=== PATIENT | male | born 1955 | race Caucasian/White ===

== ENCOUNTER 2018-06-10 18:52 | Inpatient (IN) | payer MEDICARE, OTHER ==
--- NOTE | 2018-06-10 19:08 | ED Physician Chart ---
ED Chief Complaint/HPI - Patient Information Date Seen:: 06/10/18 Time Seen:: 18:50 Chief Complaint:: agitation History of Present Illness:: At his long-term facility the patient has reportedly been punching staff and smearing feces. Historian:: Patient, EMS Review:: Transfer documents Reviewed ED Review of Systems - Review of Systems General/Constitutional: No fever, No chills, No weight loss, No weakness, No diaphoresis, No edema, No loss of appetite Skin: No skin lesions, No rash, No bruising Head: No headache, No light-headedness Eyes: No loss of vision, No pain, No diplopia ENT: No earache, No nasal drainage, No sore throat, No tinnitus Neck: No neck pain, No swelling, No thyromegaly, No stiffness, No mass noted Cardio Vascular: No chest pain, No palpitations, No PND, No orthopnea, No edema Pulmonary: No SOB, No cough, No sputum, No wheezing GI: No nausea, No vomiting, No diarrhea, No pain, No melena, No hematochezia, No constipation, No hematemesis G/U: No dysuria, No frequency, No hematuria Musculoskeletal: No bone or joint pain, No back pain, No muscle pain Endocrine: No polyuria, No polydipsia Psychiatric: Prior psych history, No prior psych history, No depression, No anxiety, No suicidal ideation Hematopoietic: No bruising, No lymphadenopathy Allergic/Immuno: No urticaria, No angioedema Neurological: No syncope, No focal symptoms, No weakness, No paresthesia, No headache, No seizure, No dizziness, No confusion, No vertigo ED Past Medical History - Past Medical History Past Medical History: Other (anemia; tachycardia; hypernatremia; benign prostatic hypertrophy; psychosis; major depression status post deep vein thrombosis) Family History: Other Social History: Care Facility, Other (former smoker) Surgical History: other Psychiatricy History: Depression, Schizophrenia Medication: Reviewed ED Physical Exam - Physical Examination General/Constitutional: Awake, Well-developed, well-nourished, Alert, No distress, GCS 15, Non-toxic appearing, Ambulatory Head: Atraumatic Eyes: Lids, conjuctiva normal, PERRL, EOMI Other Skin comments:: Palms of both hands dry, peeling and cracked. ENMT: External ears, nose nl, Nasal exam nl, Lips, teeth, gums nl Neck: Nontender, Full ROM w/o pain, No JVD, No nuchal rigidity, No bruit, No mass, No stridor Respiratory: Nl effort/Exclusion, Clear to Auscultation, No Wheeze/Rhonchi/Rales Cardio Vascular: RRR, No murmur, gallop, rubs, NL S1 S2 GI: No tenderness/rebounding/guarding, No organomegaly, No hernia, Normal BS's, Nondistended, No mass/bruits, No McBurney tenderness : No CVA tenderness Extremities: No tenderness or effusion, Full ROM, normal strength in all extremities, No edema, Normal digits & nails Neuro/Psych: Alert/oriented, DTR's symmetric, Normal sensory exam, Normal motor strength, Judgement/insight normal, Mood normal, Normal gait, No focal deficits Misc: Normal back, No paraspinal tenderness ED Labs/Radiology/EKG Results - Lab Results Results: Laboratory Results - last 24 hr 06/10/18 06/10/18 19:13 19:13 WBC 7.0 RBC 3.82 L Hgb 11.4 L Hct 33.4 L MCV 87.4 MCH 29.7 MCHC Differential 34.0 RDW 16.9 Plt Count 480 H MPV 7.1 Add Manual Diff YES Band Neutrophils % 3 Neutrophils (Manual) 72 Lymphocytes 10 L Monocytes 15 H Eosinophils 0 Basophils 0 Sodium 129 L Potassium 4.2 Chloride 97 L Carbon Dioxide 24.1 Anion Gap 12.1 BUN 26 H Creatinine 1.0 Est GFR ( Amer) > 60.0 Est GFR (Non-Af Amer) > 60.0 BUN/Creatinine Ratio 26.0 Glucose 128 H Calcium 8.2 L Total Bilirubin 0.2 L AST 49 H ALT 90 H Alkaline Phosphatase 100 Total Protein 5.7 L Albumin 2.8 L Globulin 2.9 Albumin/Globulin Ratio 1.0 Triglycerides 125 Cholesterol 108 LDL Cholesterol Direct 60 L HDL Cholesterol 38 - EKG Interpretations Rate & Rhythm: normal sinus rhythm with a rate of 85 [place]: normal Comments:: Left atrial enlargement; Q-wave in V2 suggestive of an old septal [place]. ED Septic Shock - . Is Septic Shock (SBP<90, OR Lactate>4 mmol\L) present?: No ED Reassessment (Disposition) - Reassessment Reassessment Condition:: Unchanged - Diagnosis Diagnosis:: Schizophrenia with agitation; depression - Patient Disposition Admitting Medical Physician:: Brien eDwey Admitting Psych Physician:: Darrick Kumar Condition at Disposition:: Stable, Unchanged
[2018-06-10 19:20] LABS: HEMATOCRIT 33.4 % (41.0-60); HEMOGLOBIN 11.4 gm/dL (12-16); MEAN CELL VOLUME 87.4 fl (80-99); MEAN CORPUSCULAR HEMOGLOBIN 29.7 pg (26.0-30.0); MEAN PLATELET VOLUME 7.1 fl; PLATELET COUNT 480 Th/cmm (150-400); RED BLOOD COUNT 3.82 Mil/cmm (4.30-5.70); RED CELL DISTRIBUTION WIDTH 16.9 % (11.5-20.0)
[2018-06-10 19:37] LABS: ALBUMIN 2.8 gm/dL (4.2-5.5); ALKALINE PHOSPHATASE 100 U/L (34-104); ANION GAP 12.1 (7.0-16.0); BILIRUBIN,TOTAL 0.2 mg/dL (0.3-1.0); BUN - UREA NITROGEN 26 mg/dL (7-25); CALCIUM SERUM 8.2 mg/dL (8.6-10.3); CARBON DIOXIDE 24.1 mEq/L (21.0-31.0); CHLORIDE 97 mEq/L (98-107); CHOLESTEROL 108 mg/dL (<200); GFR AFRICAN-AMERICAN > 60.0 ml/min (>90); GFR NON AFRICAN-AMERICAN > 60.0 ml/min; GLUCOSE 128 mg/dL (70-105); HDL -HIGH DENSITY LIPOPROTEIN 38 mg/dL (23-92); POTASSIUM SERUM 4.2 mEq/L (3.5-5.1); SGOT 49 U/L (13-39); SGPT/ALT 90 U/L (7-52); SODIUM SERUM 129 mEq/L (136-145); TOTAL PROTEIN,SERUM 5.7 gm/dL (6.0-8.3); TRIGLYCERIDES 125 mg/dL (<150)
[2018-06-10 20:00] LABS: BAND NEUTROPHILE 3 % (0-10); BASOPHIL 0 % (0-3); EOSINOPHIL 0 % (0-5); LYMPHOCYTE 10 % (20-50); MONOCYTE 15 % (2-10); NEUTROPHILS 72 % (40-80)
[2018-06-10] MEDS ORDERED: Maalox 30 mL Cup PO PRN (22:41)
[2018-06-10] MEDS ORDERED: Magnesium Hydroxide (MOM) 30 mL UDC PO PRN (22:41)
[2018-06-11 08:57] VITALS: BP 116/78
[2018-06-11] MEDS ORDERED: Non-Formulary Item 1 EA (Multivitamin [Multivitamins] 1 CAP) PO SCH (09:00)
[2018-06-11] MEDS ORDERED: Multivitamin Tab PO SCH (09:00)
--- NOTE | 2018-06-11 10:08 | History & Physical ---
ADMIT DATE: 06/11/2018 PATIENT'S ID: A 63-year-old male. REQUESTING PHYSICIAN: Dr. Kumar. REASON: Medical management. HISTORY: The patient is an extremely poor historian, unable to get meaningful history. Available records from alf, Emergency Room, and talking to the staff. History is obtained. Apparently, a 63-year-old male who was a resident of [facility], brought in to the Emergency Room after the patient was noted to have aggressive behavior and hitting staff. The patient was also smearing his stool on the wall as well. The patient was evaluated in the Emergency Room and now being admitted. PAST MEDICAL HISTORY: Remarkable for: 1. Status post colostomy. 2. History of anemia. 3. History of DVT. 4. Psychotic disorder. 5. Status post colostomy for unknown reason. MEDICATIONS: List has been reviewed and reconciled appropriately. ALLERGIES: Allergies to multiple medications, which includes ATROPINE, PHENOBARBITAL, SCOPOLAMINE. SOCIAL HISTORY: He is a resident of alf, does not smoke, does not drink. FAMILY HISTORY: Unavailable. REVIEW OF SYSTEMS: Unable to get meaningful history from the patient. PHYSICAL EXAMINATION: GENERAL: The patient is alert, awake, but not following any commands. VITAL SIGNS: Temperature 98.1, pulse 80, respiratory is 18, blood pressure 116/78. HEENT: Normocephalic, atraumatic. Extraocular muscles are intact. Tongue was pink and coated. NECK: Supple, no JVD. HEART: Regular. No murmur. CHEST: Lung equal in expansion. No expiratory wheezing. ABDOMEN: Soft. Colostomy noted. Bowel sounds are present. EXTREMITIES: No edema. Peripheral pulses are +1, diffuse osteoarthritic changes noted. NEUROLOGIC: Alert, but not following any commands. Moving upper and lower extremities. AVAILABLE DIAGNOSTIC DATA: Show a white count of 7, hemoglobin 11.4, platelet count of 480, monocytes 15%. Sodium 129, potassium 4.2, chloride 97, BUN and creatinine is 26 and 1, albumin of 2.8, LDL of 60. RPR is nonreactive. Other labs are not available for review. CLINICAL IMPRESSION: 1. Psychotic disorder exacerbation. 2. Status post colostomy. 3. Benign prostatic hypertrophy. 4. Hyponatremia. 5. Normocytic normochromic anemia. 6. Protein-calorie malnutrition. 7. Degenerative joint disease. 8. High risk for fall. PLAN: The patient is to resume his home medication. Psych evaluation and management deferred to psychiatrist. Workup for hyponatremia along with colostomy care as well. Symptoms management and medication management will be provided as well. We will continue to follow this patient during the stay in the hospital. [facility]# [id number]
[2018-06-11] MEDS: Benztropine 1 MG TAB PO SCH ×2 (11:25→18:41)
[2018-06-11] MEDS: Multivitamin Tab PO SCH (13:17)
[2018-06-11] MEDS: Zinc Oxide Ointment 60 gm TP SCH (18:14)
--- NOTE | 2018-06-11 18:16 | Psychiatric Evaluation ---
DATE OF SERVICE: 06/11/2018 HISTORY OF PRESENT ILLNESS: A 63-year-old male with long history of schizophrenia, currently conserved was at a [facility]. I saw him yesterday, he was punching staff in the abdomen, smearing feces, psychotic, disorganized, aggressive, nonsensical on exam. States he has no idea when talking about when I talk about the feces. Noted to be withdrawn, highly impulsive, unpredictable, ongoing psychotic symptoms. PAST PSYCHIATRIC HISTORY: Conserved, multiple hospitalizations in the past. FAMILY HISTORY: Unknown. SOCIAL HISTORY: States he was born in [place]. Not , no kids. Unclear if he has been using any drugs. Very poor historian. Apparently, he is a former smoker per documentation. PAST MEDICAL HISTORY: Noted. MENTAL STATUS EXAMINATION: Stated age. Fair eye contact. Speech rambling, disorganized, smells of feces. Mood "okay." Affect flat. Thought processes were disorganized. No overt SI or HI. He is rambling, mumbling to self. Poor insight, poor judgment. PROVISIONAL DIAGNOSIS: Schizophrenia. MEDICAL: Please see full H and P. ESTIMATED LENGTH OF STAY: 10 to 14 days. Functional impairments, needs ch[facility]. Pain 0/10. ASSESSMENT: The patient is disorganized, bizarre, smearing feces, punching staff, combative. PLAN: I will increase Zyprexa dosing today. Continue dosing of Haldol. TREATMENT PLAN: Includes group as well as milieu therapy. CONDITIONS FOR DISCHARGE: Improved mood, improved affect, cessation of any SI, better control of his psychotic and bizarre and aggressive symptoms. [facility]# [id number]
[2018-06-11] MEDS ORDERED: Non-Formulary Item 1 EA (Melatonin [Melatonin] 6 MG) PO SCH (21:00)
--- NOTE | 2018-06-11 23:23 | History & Physical ---
ADMIT DATE: 06/11/2018 HISTORY OF PRESENT ILLNESS: The patient is a 63-year-old male with long history of degenerative joint disease, benign prostatic hypertrophy, dementia, psychosis, admitted to [facility] under Dr. Kumar's service for evaluation and treatment. No chest pain, no shortness of breath, no nausea, no vomiting, no fever, no chills. PAST MEDICAL HISTORY: Significant for degenerative joint disease, benign prostatic hypertrophy, dementia, and psychosis. PAST SURGICAL HISTORY: No recent surgery. ALLERGIES: ATROPINE, HYOSCYAMINE, PHENOBARBITAL, SCOPOLAMINE. SOCIAL HISTORY: No alcohol, no drugs. He has history of smoking. FAMILY HISTORY: Noncontributory. MEDICATIONS: Follow admission reconciliation. REVIEW OF SYSTEMS: IMMUNO SYSTEM: No history of chronic immuno disorder. CARDIOVASCULAR SYSTEM: No coronary artery disease. ENDOCRINE SYSTEM: No diabetes or thyroid problem. GASTROINTESTINAL SYSTEM: No upper or lower GI bleed. NEUROLOGICAL SYSTEM: No seizure disorder. SKELETOMUSCULAR SYSTEM: He has degenerative joint disease. HEMATOLOGIC SYSTEM: He has history of mild anemia. GENITOURINARY: He has history of benign prostatic hypertrophy. PHYSICAL EXAMINATION: GENERAL: He is awake, alert, mildly confused. VITAL SIGNS: Temperature is 98.2, heart rate is 79, blood pressure is 119/72. HEENT: Normocephalic. Pupils reactive to light and accommodation. Sclerae clear. NECK: Supple. Negative for lymphadenopathy, JVD or bruit. CHEST: Entry of air bilaterally normal. No rhonchi or wheezing. HEART: S1, S2 normal. No gallop rhythm. ABDOMEN: Soft, bowel sounds positive. EXTREMITIES: No edema. NEUROLOGIC: He is awake, alert, mildly confused. LABORATORY DATA: White blood 7, hemoglobin 11.4, hematocrit 33.4, platelets 480,000. Sodium 129, potassium 4.2, BUN 26, creatinine 1.0. Glucose 128. ASSESSMENT: 1. Degenerative joint disease. 2. Benign prostatic hypertrophy. 3. Hyponatremia. 4. Dementia. 5. Psychosis. PLAN: The patient admitted to the hospital under Dr. Kumar's service. Medical problem to address during hospitalization are dementia and psychosis. Medical problems addressed at discharge are benign prostatic hypertrophy, degenerative joint disease. The patient is medically stable for activity. Thank you, Dr. Kumar, for asking me to see your patient. [facility]# [id number]
[2018-06-12] MEDS: Benztropine 1 MG TAB PO SCH ×2 (09:34→16:25)
[2018-06-12] MEDS: Multivitamin Tab PO SCH (09:34)
[2018-06-12] MEDS: Zinc Oxide Ointment 60 gm TP SCH (09:35)
[2018-06-12] MEDS ORDERED: Haloperidol Lactate 5 mg/mL 1mL Vial IM ONE (14:37)
[2018-06-12] MEDS ORDERED: Haloperidol Lactate 5 mg/mL 1mL Vial ONE (14:42)
--- NOTE | 2018-06-12 22:42 | Progress Notes ---
DATE: 06/12/[address] Kumar. Case was discussed with staff of the patient, reviewed records. This is a 63-year-old male who was admitted to the services of Dr. Kumar on 06/10/2018, for the history of schizophrenia. He is conserved. He is in a long-term facility. The patient was punching staff in the abdomen, smearing feces, very psychotic, disorganized, making nonsensical statements, unable to answer questions appropriately, has multiple hospitalization in the past. He is still disorganized, talking to himself, unpredictable, impulsive, needing redirection, unable to make safe plan for self-care. ____ he was started yesterday by Dr. Kumar. He is on Haldol 5 mg 3 times a day and olanzapine 10 mg twice a day with no side effects, no sedation, no nausea, no extrapyramidal symptoms. We will continue to work with the patient in group therapy, milieu therapy, and adjust the medication as needed. JOB# [id number]
[2018-06-13] MEDS: Multivitamin Tab PO SCH (08:43)
[2018-06-13] MEDS: Benztropine 1 MG TAB PO SCH ×2 (08:43→18:41)
[2018-06-13] MEDS: Zinc Oxide Ointment 60 gm TP SCH (08:47)
[2018-06-13] MEDS ORDERED: Haloperidol Lactate 5 mg/mL 1mL Vial IM STA (11:30)
[2018-06-13] MEDS ORDERED: Haloperidol Lactate 5 mg/mL 1mL Vial ONE (11:32)
--- NOTE | 2018-06-13 21:26 | Progress Notes ---
DATE: 06/13/[address] Kumar. Case was discussed with staff of the patient, reviewed records. The patient continues to be very agitated. He is in the isolation room. He has been threatening staff, punching staff, he has been unpredictable, very agitated, even get emergency medication to work for an hour, then he will get fired up again. He continues to have poor insight. I will be initiating Depakote on him because of his extreme agitation, impulsive, threatening behavior to help with the rest of his medications. Discussed side effects, though not sure he listen to me. He is severely agitated, impulsive, unpredictable and with no side effects with the medication, no sedation, no nausea, no extrapyramidal symptoms. We will continue outpatient group therapy, milieu therapy, and adjust medication as needed. JOB# [id number]
--- NOTE | 2018-06-14 08:18 | Diagnostic Imaging Report ---
CT scan of the brain without contrast History: Status post fall Total DLP equals 687 CTDI equals 37.0 Axial sections were obtained from the base of the skull to the vertex. There is a normal ventricular system size. No focal parenchymal lesions are seen. No evidence of any mass effect or shift of midline structures. No extra-axial masses or abnormal fluid collections. There is evidence for a retrocerebellar arachnoid cyst on the right side. Impression: Negative examination
[2018-06-14] MEDS: Multivitamin Tab PO SCH (09:31)
[2018-06-14] MEDS: Zinc Oxide Ointment 60 gm TP SCH (09:32)
[2018-06-14] MEDS: Benztropine 1 MG TAB PO SCH ×2 (09:32→17:25)
--- NOTE | 2018-06-14 11:24 | Progress Notes ---
DATE: 06/14/2018 SUBJECTIVE: The patient is currently in the hospital, mostly isolative, at times threatening, highly impulsive, unpredictable, rambling, making nonsensical comments, came in due to smearing feces, ongoing concerns for these types of behaviors. Still going to the bathroom, still messing with his colostomy bag, multiple changes throughout the day, fixated on smoking, restless, getting up out of bed, sitting in his wheelchair, rambling, mumbling, yelling at his clinician. ASSESSMENT: The patient remains symptomatic, ongoing psychotic symptoms, compulsions, bizarre. PLAN: We will continue to monitor. I will be titrating medications, increasing medications. The patient is not safe for discharge. Medications were noted. He did require emergency medications yesterday. JOB# [id number]
[2018-06-15] MEDS: Multivitamin Tab PO SCH (08:55)
[2018-06-15] MEDS: Benztropine 1 MG TAB PO SCH ×2 (08:56→16:20)
[2018-06-15] MEDS: Zinc Oxide Ointment 60 gm TP SCH (08:57)
--- NOTE | 2018-06-15 23:13 | Progress Notes ---
DATE: 06/15/2018 The patient seen, chart reviewed, discussed with staff. The patient naked, wandering in the room, still pulling out the colostomy bag, still unruly requiring a lot of staff interventions, still combative, argumentative, bizarre, making some bizarre comments, nonsensical. Sleeping fairly well. The patient remains symptomatic, currently on Zyprexa 10 t.i.d. Also, Haldol 5 t.i.d., Depakote 250 daily. I will be checking a Depakote level and titrate medications accordingly. Given his ongoing symptoms, he is not safe for discharge. JOB# [id number]
[2018-06-16] MEDS: Multivitamin Tab PO SCH (09:14)
[2018-06-16] MEDS: Benztropine 1 MG TAB PO SCH ×2 (09:15→16:51)
[2018-06-16] MEDS: Zinc Oxide Ointment 60 gm TP SCH (09:53)
--- NOTE | 2018-06-16 10:16 | Progress Notes ---
DATE: 06/16/2018 The patient noted fully oriented, confused, yesterday was walking around naked, smells of feces, very unruly. He sometimes tries to remove his colostomy bag. He is very impulsive, unpredictable, rambling nonsensically, difficult to redirect, sometimes gets aggressive, anxious. ASSESSMENT: The patient remains symptomatic, compulsive with colostomy bag. Currently on Depakote and Haldol. We will initiate anti-depressive medications to see if we can alleviate his compulsive behaviors. He is quite symptomatic, still smearing feces and walking around naked and unruly. JOB# [id number]
[2018-06-17] MEDS: Multivitamin Tab PO SCH (09:42)
[2018-06-17] MEDS: Benztropine 1 MG TAB PO SCH ×2 (09:43→17:01)
[2018-06-17] MEDS: Zinc Oxide Ointment 60 gm TP SCH (09:44)
[2018-06-17] MEDS: Escitalopram Oxalate 5 mg Tab PO SCH ×2 (11:51→17:01)
--- NOTE | 2018-06-17 22:38 | Progress Notes ---
DATE: 06/17/2018 SUBJECTIVE: The patient seen, chart reviewed, discussed with staff. The patient was seen today 06/17/2018. The patient remains highly impulsive, unpredictable, poorly oriented, rambling, compulsive behaviors. Still at times, pulls off colostomy bag, does it on the floor, anxious, restless at times smearing feces, slept for about 4 hours. He does remain somewhat calmer, catch basin cleaner, not smearing feces at this time, but walking around the unit, currently on Zyprexa, Haldol, Depakote, Lexapro. Recent dose initiation of Lexapro. ASSESSMENT: The patient remains symptomatic, bizarre, still smearing feces, highly impulsive and unpredictable, ongoing concerns about behavioral disturbances. I will continue to monitor. JOB# [id number]
[2018-06-18] MEDS: Escitalopram Oxalate 5 mg Tab PO SCH (08:40)
[2018-06-18] MEDS: Benztropine 1 MG TAB PO SCH ×2 (08:41→16:43)
[2018-06-18] MEDS: Multivitamin Tab PO SCH (08:42)
[2018-06-18] MEDS: Zinc Oxide Ointment 60 gm TP SCH (08:44)
[2018-06-18] MEDS: HALOPERIDOL PO SCH ×2 (13:49→20:38)
--- NOTE | 2018-06-19 02:56 | Progress Notes ---
DATE: 06/18/2018 SUBJECTIVE: The patient is seen today, 06/18/2018. Unpredictable, yelling, sleeping in other patient's bed, feels other patients' food, rummages through the trashcan, wandering. The patient still tampering with his bag. He has been somewhat calmer, but touches things with his hands, which at times has feces on it. The patient noted to be withdrawn, depressed, rambling, highly disorganized, sleeping fairly well, and eating with some prompting. ASSESSMENT: The patient disorganized, psychotic, symptomatic, bizarre. PLAN: We will continue to monitor. We will increase dosing of Haldol to try to tamper down his psychotic symptoms, bizarre behaviors. We will monitor and follow up. Also, we will be increasing his dosing of Lexapro to see if this will decrease his compulsive behaviors. [facility]# [id number]
[2018-06-19] MEDS: Multivitamin Tab PO SCH (08:52)
[2018-06-19] MEDS: HALOPERIDOL PO SCH ×3 (08:52→21:12)
[2018-06-19] MEDS: Benztropine 1 MG TAB PO SCH ×2 (08:53→16:22)
[2018-06-19] MEDS: Zinc Oxide Ointment 60 gm TP SCH (09:03)
--- NOTE | 2018-06-20 08:18 | Progress Notes ---
DATE: 06/19/2018 SUBJECTIVE: The patient was seen and evaluated. The patient's chart reviewed. This is Dr. Rice covering for Dr. Kumar. IDENTIFYING DATA: This is a 63-year-old male with previous history of schizophrenia, brought in here, who has been punching staff in the abdomen, smearing feces and psychotic. Nursing staff reported the patient continues overnight to smear feces, disorganized, and laughing inappropriately. As earlier last night primary psychiatric continues to note the patient continues to be unpredictable, yelling, sleeping in other people's bed and rummages through the trash can. Today on [id number] evaluation, the patient presents disorganized, does not give much more information beyond that. When I attended to discuss linear conversation, once the patient will be preoccupied, observed to be thought blocking. ASSESSMENT AND PLAN: The patient continued to be psychotic, disorganized, engaging in self injured behavior, which includes rummaging through trash can, wandering, and also attempting to play with the feces and rambling. Recently, the Haldol was increased in the last 24 hours, which he is tolerating without complication. No EPS. No tardive dyskinesia. We will continue with the current medication regimen. CURRENT MEDICATION REGIMEN: Include mg p.o. b.i.d., Depakote 250 daily and 1800, citalopram at 10 mg, finasteride and Haldol 6 mg t.i.d. with lorazepam as needed, olanzapine at 10 mg t.i.d., which is currently being augmented with the current Haldol dosage. JOB# [id number]
[2018-06-20] MEDS: Multivitamin Tab PO SCH (09:03)
[2018-06-20] MEDS: HALOPERIDOL PO SCH ×3 (09:04→20:38)
[2018-06-20] MEDS: Benztropine 1 MG TAB PO SCH ×2 (09:05→16:17)
[2018-06-20] MEDS: Zinc Oxide Ointment 60 gm TP SCH (09:06)
--- NOTE | 2018-06-21 00:09 | Progress Notes ---
DATE: 06/20/2018 COVERING FOR: Dr. Kumar. SUBJECTIVE: The patient was seen and evaluated. The patient's chart reviewed. Nursing staff reported that the patient continued to be disorganized. Today on [id number] evaluation, he was outside, smoking, easily irritable upon his conversation, mildly just disorganized. Nursing staff also continued to report that at times he has feces in his hands. MENTAL STATUS EXAMINATION: Disorganized, psychotic, symptomatic. ASSESSMENT AND PLAN: We will continue with the recent increase of Haldol as he continues to reach a steady state. To continue with ____ the patient's bizarre behavior and the behavior of playing with the feces. We will continue monitoring and evaluating, and continue with primary psychiatrist's treatment plan and goals. JOB# [id number]
[2018-06-21] MEDS: Multivitamin Tab PO SCH (09:36)
[2018-06-21] MEDS: HALOPERIDOL PO SCH ×3 (09:36→21:36)
[2018-06-21] MEDS: Benztropine 1 MG TAB PO SCH ×2 (09:36→17:31)
[2018-06-21] MEDS: Zinc Oxide Ointment 60 gm TP SCH (09:39)
--- NOTE | 2018-06-21 11:22 | Progress Notes ---
DATE: 06/21/2018 SUBJECTIVE: The patient seen and examined. The patient having foul smelling loose bowel movement. Concern about the C. diff. The patient remained hemodynamically stable otherwise. THE PATIENT HAS MULTIPLE ALLERGIES. OBJECTIVE: On today's exam, VITAL SIGNS: Temperature 98, pulse is 100, respiratory rate 18, blood pressure 100/50. HEENT: No facial asymmetry. NECK: Supple, no JVD. HEART: Regular. CHEST AND LUNG: Equal in expansion, no expiratory wheezing. ABDOMEN: Soft. No guarding, no rigidity. Bowel sounds present. No palpable mass. Well-functioning colostomy noted. EXTREMITIES: No edema. NEUROLOGIC: Alert, awake, moving upper and lower extremity. CLINICAL IMPRESSION: 1. Diarrhea, ruled out Clostridium difficile. 2. Hyponatremia. 3. Protein-calorie malnutrition. 4. Degenerative joint disease. 5. Psychotic disorder. 6. Status post colostomy. PLAN: 1. Check the stool for C. diff. 2. Check BMP. 3. General nursing care. 4. Psych medication. 5. Fall precaution. 6. Colostomy care. 7. Care plan reviewed and discussed with staff. JOB# [id number]
[2018-06-21 12:03] LABS: ANION GAP 13.5 (7.0-16.0); CARBON DIOXIDE 26.8 mEq/L (21.0-31.0); CREATININE - SERUM 1.6 mg/dL (0.7-1.3); GFR AFRICAN-AMERICAN 56.2 ml/min (>90); GFR NON AFRICAN-AMERICAN 46.5 ml/min; POTASSIUM SERUM 5.3 mEq/L (3.5-5.1)
--- NOTE | 2018-06-21 16:20 | Progress Notes ---
DATE: 06/21/2018 SUBJECTIVE: The patient remains bizarre, disorganized, clog in the toilet at times, he is nonsensical. Difficult to understand what he is saying. Still attempting to remove his colostomy bag. He is calmer, some more redirectable. On a positive note, he is not trying to punch anybody. He is not hitting anybody. He is confused, talking to himself. Medication adjustments do seem to be improving his overall demeanor. He is currently on Zyprexa 10 t.i.d. and Haldol 6 t.i.d. Depakote throughout the day as well. Lexapro seems to be helping some of his compulsions. We will continue to monitor, adjust and titrate medications. Medications were noted. He is still bizarre, but calmer. JOB# [id number]
[2018-06-21] MEDS: Vancomycin HCL 250 mg /10mL UDC PO SCH (21:37)
[2018-06-22] MEDS: Benztropine 1 MG TAB PO SCH ×2 (09:50→17:55)
[2018-06-22] MEDS: HALOPERIDOL PO SCH ×3 (09:51→21:00)
[2018-06-22] MEDS: Zinc Oxide Ointment 60 gm TP SCH (09:52)
[2018-06-22] MEDS: Multivitamin Tab PO SCH (09:52)
[2018-06-22] MEDS: Vancomycin HCL 250 mg /10mL UDC PO SCH ×4 (09:53→21:00)
[2018-06-22] MEDS ORDERED: Probiotic Screen MC PRN (12:11)
[2018-06-22] MEDS: Lactobacillus Rhamnosus GG 15 Billion CFU CAP.SPRINK PO SCH (14:00)
--- NOTE | 2018-06-22 17:40 | Discharge Summary ---
DATE OF DISCHARGE: 06/22/2018 DATE OF DISCHARGE: 06/22/2018. JUSTIFICATION FOR HOSPITALIZATION: Punching staff. HISTORY OF PRESENT ILLNESS: A 63-year-old male with long history of schizophrenia, conserved, punching staff in the abdomen at the alf, smearing feces, psychotic, disorganized, nonsensical, walking around naked, walking around with feces on his hands, bizarre. PAST PSYCHIATRIC HISTORY: Conserved. FAMILY HISTORY: Unknown. SOCIAL HISTORY: Noted. MENTAL STATUS EXAMINATION: Please see full psych eval for details. PROVISIONAL DIAGNOSIS: Schizophrenia. Under medical, please see full H and P. HOSPITAL COURSE: After initial assessment, the patient was started on medications such as Flomax, Zyprexa. Zyprexa was titrated. Haldol titrated. Lexapro also titrated for the compulsive behaviors, also Depakote, Cogentin. Over the course of the hospitalization, his mood improved. He was calmer, more cooperative, remain pretty disorganized, bizarre, but no longer smearing feces, more cooperative, no agitation, not trying to punch anybody, able to more clearly let his needs be known. The patient on isolation due to Clostridium difficile. The patient noted to be sleeping well, eating fairly well. Still requiring some prompting, redirection. By 06/22/2018, he was no longer combative, no longer agitated. His mood had improved. He was likely at his baseline and was discharged. Placement was confirmed. CONDITION UPON DISCHARGE: Improved, allowing ADLs. Fair eye contact. Mood "okay." Affect bizarre. Thought processes remain somewhat disorganized. No SI, no HI, no intent, no plan. No overt psychotic symptoms. Insight and judgment seem better. Better impulse control. Certainly less compulsive. No evidence of any auditory or visual hallucinations. No longer talking to himself. DISCHARGE DIAGNOSES: Schizophrenia, rule out obsessive compulsive disorder, anxiety, unspecified. Under medical, please see full H and P. PATIENT'S STRENGTHS: Good response to treatment and safe discharge plan. PROGNOSIS: The patient follows up with outpatient mental health services and remains compliant with treatment. Prognosis will improve, otherwise guarded. JOB# [id number]
[2018-06-23] MEDS: Benztropine 1 MG TAB PO SCH ×2 (08:46→16:38)
[2018-06-23] MEDS: HALOPERIDOL PO SCH ×3 (08:46→21:37)
[2018-06-23] MEDS: Lactobacillus Rhamnosus GG 15 Billion CFU CAP.SPRINK PO SCH (08:47)
[2018-06-23] MEDS: Multivitamin Tab PO SCH (08:47)
[2018-06-23] MEDS: Zinc Oxide Ointment 60 gm TP SCH (08:48)
[2018-06-23] MEDS: Vancomycin HCL 250 mg /10mL UDC PO SCH ×4 (09:21→21:44)
--- NOTE | 2018-06-23 16:52 | Progress Notes ---
DATE: 06/23/2018 SUBJECTIVE: The patient remains bizarre, psychotic. He was supposed to leave yesterday, but he has a C. diff, so he cannot leave. He is currently under treatment. His wheelchair is highly contaminated. He is in a Holli chair, bizarre, nonsensical likely at his baseline. He is not combative or agitated. He is calmer. Medications seem to be helping him. He is quite gravely disabled, currently conserved. Medications were noted. Sleeping well, eating well. ASSESSMENT: The patient is bizarre, still psychotic, not safe for a lower level of care. Also with infection. RECOMMENDATIONS AND PLAN: We will continue to monitor, adjust and titrate medications. We are also treating infection. JOB# [id number]
[2018-06-24] MEDS: Multivitamin Tab PO SCH (08:34)
[2018-06-24] MEDS: Lactobacillus Rhamnosus GG 15 Billion CFU CAP.SPRINK PO SCH (08:35)
[2018-06-24] MEDS: Benztropine 1 MG TAB PO SCH ×2 (08:36→16:26)
[2018-06-24] MEDS: HALOPERIDOL PO SCH ×3 (08:36→20:28)
[2018-06-24] MEDS ORDERED: Haloperidol Lactate 5 mg/mL 1mL Vial ONE (09:20)
[2018-06-24] MEDS: Vancomycin HCL 250 mg /10mL UDC PO SCH ×4 (10:01→20:31)
[2018-06-24] MEDS: Zinc Oxide Ointment 60 gm TP SCH (10:02)
--- NOTE | 2018-06-25 02:50 | Progress Notes ---
DATE: 06/24/2018 SUBJECTIVE: The patient is bizarre, psychotic, smearing feces, requiring emergency medications today, combative, hitting others. Medications were noted. Sleeping well, eating well. Medications were noted including doses and frequencies. ASSESSMENT: The patient remains symptomatic, bizarre, agitated, aggressive, smearing feces, requiring Haldol cocktail today. We will continue to monitor. The patient is not safe for discharge. We will titrate dosages of medications. [facility]# [id number]
[2018-06-25] MEDS: HALOPERIDOL PO SCH ×3 (08:05→20:30)
[2018-06-25] MEDS: Multivitamin Tab PO SCH (08:05)
[2018-06-25] MEDS: Lactobacillus Rhamnosus GG 15 Billion CFU CAP.SPRINK PO SCH (08:06)
[2018-06-25] MEDS: Benztropine 1 MG TAB PO SCH ×2 (08:06→17:21)
[2018-06-25] MEDS: Vancomycin HCL 250 mg /10mL UDC PO SCH ×4 (09:04→20:28)
--- NOTE | 2018-06-26 00:54 | Progress Notes ---
DATE: 06/25/2018 The patient slept for about 4 hours, in and out of the room, wandering, suddenly yelling at times, at times needing emergency medications. He required emergency medications yesterday over the past 24 hours, Haldol cocktail. He is still making some bizarre statements, mumbling, and stating to staff, he does not care, but it is unclear what the context is. He known to be psychotic, responding to internal stimuli. Medications were reviewed including dosages and frequencies. ASSESSMENT: The patient is psychotic, bizarre, recent dose increase of Zyprexa, tolerating well. VITAL SIGNS: Reviewed. Blood pressure 98/56 and pulse rate of 91. JOB# [id number]
[2018-06-26] MEDS: Benztropine 1 MG TAB PO SCH ×2 (08:45→16:59)
[2018-06-26] MEDS: Multivitamin Tab PO SCH (08:45)
[2018-06-26] MEDS: HALOPERIDOL PO SCH ×3 (08:46→20:31)
[2018-06-26] MEDS: Lactobacillus Rhamnosus GG 15 Billion CFU CAP.SPRINK PO SCH (08:47)
[2018-06-26] MEDS: Zinc Oxide Ointment 60 gm TP SCH (08:47)
[2018-06-26] MEDS: Vancomycin HCL 250 mg /10mL UDC PO SCH ×4 (08:47→21:26)
--- NOTE | 2018-06-26 21:16 | Progress Notes ---
DATE: SUBJECTIVE: The patient seen, chart reviewed, discussed with staff. The patient is still wandering behavior, disoriented, disorganized, yelling at times, gets agitated at times, needing some p.r.n. medications. Difficult to understand, mumbles, still fixated on colostomy bag. ASSESSMENT: The patient remains impulsive, unpredictable, not safe for a lower level of care. Certainly gravely disabled. Vitals reviewed, blood pressure 107/64, pulse rate of 99. PLAN: We will continue to monitor, tolerant of Zyprexa. JOB# [id number]
--- NOTE | 2018-06-26 23:26 | Progress Notes ---
DATE: SUBJECTIVE: The patient seen and examined. The patient is still agitated. The patient has been noted to have C. diff colitis. The patient is currently on p.o. vancomycin. So far, the patient has significantly decreased diarrhea for now. The patient does not provide a meaningful history. Discussed with nursing staff about their concern. PHYSICAL EXAMINATION: VITAL SIGNS: Temperature 97.6, pulse 96, respiratory rate is 20, and blood pressure 124/65. HEENT: No facial asymmetry. NECK: Supple, no JVD. HEART: Both heart sounds are regular. CHEST AND LUNGS: Equal in expansion, no expiratory wheezing. ABDOMEN: Soft. No guarding, no rigidity. Bowel sounds are present. Well-functioning colostomy noted. EXTREMITIES: No edema. CLINICAL IMPRESSION: 1. Clostridium difficile colitis. 2. Protein calorie malnutrition. 3. Psychotic disorder. 4. Degenerative joint disease. 5. Mild renal insufficiency by blood test. 6. Psychotic disorder. PLAN: 1. P.o. Vancocin. 2. Follow up lab. 3. Nutritional support. 4. General nursing care. 5. Colostomy care. 6. Symptoms management. 7. Medication management. 8. Follow lab. 9. Care plan reviewed and discussed with staff. JOB# [id number]
[2018-06-27 06:47] LABS: % BASOPHILS 0.8 % (0.0-2.0); % EOSINOPHILS 0.8 % (0.0-5.0); % LYMPHOCYTES 17.6 % (20.0-50.0); % MONOCYTES 6.8 % (2.0-10.0); BASOPHILE ABSOLUTE 0.1 Th/cumm (0-0.2); EOSINOPHILE ABSOLUTE 0.1 Th/cmm (0.1-0.4); HEMATOCRIT 36.8 % (41.0-60); HEMOGLOBIN 12.2 gm/dL (12-16); LYMPHOCYTE ABSOLUTE 1.2 Th/cmm (1.5-3.0); MEAN CELL VOLUME 85.7 fl (80-99); MEAN CORPUSCULAR HEMOGLOBIN 28.3 pg (26.0-30.0); MEAN PLATELET VOLUME 6.7 fl; MONOCYTE ABSOLUTE 0.5 Th/cmm (0.3-1.0); PLATELET COUNT 539 Th/cmm (150-400); RED CELL DISTRIBUTION WIDTH 16.8 % (11.5-20.0); WHITE BLOOD COUNT 6.9 Th/cmm (4.8-10.8)
--- NOTE | 2018-06-27 07:18 | Progress Notes ---
DATE: SUBJECTIVE: The patient in the hospital, confused, disorganized, telling people his name is not Marty, very impatient, wanting to smoke, fixated on smoking, easily agitated, colostomy out, depressed, bizarre, erratic behaviors, highly impulsive and unpredictable, compulsive. ASSESSMENT: The patient bizarre, disorganized, psychotic, appearing mumbling to self. PLAN: We will continue to monitor, titrate and adjust medications. He is currently symptomatic, gravely disabled. JOB# [id number]
[2018-06-27 07:20] LABS: ALB/GLOB RATIO 0.7 (1.0-1.8); ALKALINE PHOSPHATASE 119 U/L (34-104); BILIRUBIN,TOTAL 0.2 mg/dL (0.3-1.0); BUN - UREA NITROGEN 46 mg/dL (7-25); CALCIUM SERUM 9.3 mg/dL (8.6-10.3); CARBON DIOXIDE 23.8 mEq/L (21.0-31.0); CHLORIDE 98 mEq/L (98-107); CREATININE - SERUM 1.5 mg/dL (0.7-1.3); GFR AFRICAN-AMERICAN > 60.0 ml/min (>90); GFR NON AFRICAN-AMERICAN 50.1 ml/min; GLUCOSE 95 mg/dL (70-105); POTASSIUM SERUM 4.8 mEq/L (3.5-5.1); SGOT 17 U/L (13-39); SGPT/ALT 31 U/L (7-52); SODIUM SERUM 128 mEq/L (136-145); TOTAL PROTEIN,SERUM 7.5 gm/dL (6.0-8.3)
[2018-06-27] MEDS: Lactobacillus Rhamnosus GG 15 Billion CFU CAP.SPRINK PO SCH (08:11)
[2018-06-27] MEDS: Multivitamin Tab PO SCH (08:12)
[2018-06-27] MEDS: Benztropine 1 MG TAB PO SCH ×2 (08:12→17:04)
[2018-06-27] MEDS: Vancomycin HCL 250 mg /10mL UDC PO SCH ×4 (08:13→20:33)
[2018-06-27] MEDS: Zinc Oxide Ointment 60 gm TP SCH (08:13)
[2018-06-27] MEDS: HALOPERIDOL PO SCH ×3 (08:13→20:32)
--- NOTE | 2018-06-27 20:26 | Progress Notes ---
DATE: 06/27/2018 SUBJECTIVE: The patient is lying in the bed, alert, awake, oriented, very anxious. The patient has a colostomy and Clostridium difficile colitis, currently under room isolation. The patient does smoke cigarettes. PHYSICAL EXAMINATION: VITAL SIGNS: Temperature 98, pulse is 80, respiratory rate is 18, blood pressure 108/78. HEENT: Poor dentition. NECK: Supple, no JVD. HEART: Regular. CHEST AND LUNGS: Equal in expansion, no expiratory wheezing. ABDOMEN: Soft. No guarding. No rigidity. Bowel sounds are present. No palpable mass. Well functioning colostomy noted. EXTREMITIES: No edema. CLINICAL IMPRESSION: 1. Clostridium difficile colitis. 2. Benign prostatic hypertrophy. 3. Psychotic disorder. 4. Status post colostomy, reason unknown. 5. Protein-calorie malnutrition. 6. Mild renal insufficiency. PLAN: 1. P.o. vancomycin. 2. Follow up lab. 3. General nursing care. 4. Colostomy care. 5. Psychotic evaluation and management deferred to psychiatrist. 6. The patient will give further nutrition. 7. Nutritional support. 8. We will give further recommendations once the lab data are available. JOB# [id number]
[2018-06-28 08:43] LABS: % BASOPHILS 0.7 % (0.0-2.0); % EOSINOPHILS 0.6 % (0.0-5.0); % LYMPHOCYTES 10.5 % (20.0-50.0); % MONOCYTES 4.5 % (2.0-10.0); % NEUTROPHILS 83.7 % (40.0-80.0); BASOPHILE ABSOLUTE 0.1 Th/cumm (0-0.2); EOSINOPHILE ABSOLUTE 0.1 Th/cmm (0.1-0.4); HEMATOCRIT 37.4 % (41.0-60); HEMOGLOBIN 12.2 gm/dL (12-16); MEAN CELL VOLUME 85.6 fl (80-99); MEAN CORPUSCULAR HGB CONC 32.7 pg (28.0-36.0); MEAN PLATELET VOLUME 6.9 fl; MONOCYTE ABSOLUTE 0.4 Th/cmm (0.3-1.0); NEUTROPHILE ABSOLUTE 8.3 Th/cmm (1.8-8.0); PLATELET COUNT 548 Th/cmm (150-400); RED BLOOD COUNT 4.37 Mil/cmm (4.30-5.70); RED CELL DISTRIBUTION WIDTH 16.8 % (11.5-20.0); WHITE BLOOD COUNT 9.9 Th/cmm (4.8-10.8)
[2018-06-28] MEDS: HALOPERIDOL PO SCH ×3 (10:11→20:43)
[2018-06-28] MEDS: Multivitamin Tab PO SCH (10:13)
[2018-06-28] MEDS: Benztropine 1 MG TAB PO SCH ×2 (10:15→16:46)
[2018-06-28] MEDS: Lactobacillus Rhamnosus GG 15 Billion CFU CAP.SPRINK PO SCH (10:15)
[2018-06-28] MEDS: Zinc Oxide Ointment 60 gm TP SCH (10:25)
[2018-06-28] MEDS: Vancomycin HCL 250 mg /10mL UDC PO SCH ×4 (10:25→20:44)
[2018-06-28 11:01] LABS: ALB/GLOB RATIO 0.7 (1.0-1.8); ANION GAP 14.4 (7.0-16.0); CALCIUM SERUM 9.4 mg/dL (8.6-10.3); CARBON DIOXIDE 21.6 mEq/L (21.0-31.0); CREATININE - SERUM 1.7 mg/dL (0.7-1.3); GFR AFRICAN-AMERICAN 52.4 ml/min (>90); GFR NON AFRICAN-AMERICAN 43.3 ml/min; TOTAL PROTEIN,SERUM 7.3 gm/dL (6.0-8.3)
[2018-06-28 11:50] LABS: BILIRUBIN,TOTAL 0.2 mg/dL (0.3-1.0)
--- NOTE | 2018-06-28 12:01 | Progress Notes ---
DATE: The patient is seen, remains bizarre, poorly oriented, impulsive, at times can be aggressive. The patient with C diff, disorganized, gravely disabled, rambling, trying to pull the colostomy. ASSESSMENT: The patient calmer, no longer aggressive. However, he is trying to pull his colostomy. He has no confirmed placement at this time. His vitals were reviewed. Medications were noted. We will continue to monitor. The patient remains grossly psychotic. JOB# [id number]
--- NOTE | 2018-06-28 12:22 | Progress Notes ---
DATE: 06/28/2018 SUBJECTIVE: The patient seen and examined. The patient lying in the bed. The patient noted to have hyponatremia with elevated BUN and creatinine. The patient is currently not taking any diuretics. The patient has diarrhea. I do suspect secondary to volume depletion. PHYSICAL EXAMINATION: VITAL SIGNS: Temperature 98.8, pulse 67, respiratory 18, blood pressure 100/65. HEENT: Poor dentition. NECK: Supple, no JVD. HEART: Regular. CHEST AND LUNGS: Equal in expansion, expiratory wheezing. ABDOMEN: Soft. Colostomy noted. EXTREMITIES: No edema. CLINICAL IMPRESSION: 1. Clostridium difficile colitis. 2. Hyponatremia. 3. Renal insufficiency. 4. Psychotic disorder. 5. Status post colostomy. 6. Benign prostatic hypertrophy. PLAN: 1. Acute kidney injury workup. 2. Sodium chloride tablet. 3. General nursing care. 4. Colostomy care. 5. Psychotic evaluation and management deferred to psychiatrist. 6. Care plan reviewed and discussed with staff. [facility]# [id number]
[2018-06-29] MEDS: Multivitamin Tab PO SCH (09:23)
[2018-06-29] MEDS: Lactobacillus Rhamnosus GG 15 Billion CFU CAP.SPRINK PO SCH (09:24)
[2018-06-29] MEDS: HALOPERIDOL PO SCH ×3 (09:25→22:00)
[2018-06-29] MEDS: Benztropine 1 MG TAB PO SCH ×2 (09:25→17:17)
[2018-06-29] MEDS: Zinc Oxide Ointment 60 gm TP SCH (09:27)
--- NOTE | 2018-06-29 09:43 | Progress Notes ---
DATE: SUBJECTIVE: The patient seen and examined. The patient is sitting in the chair. The patient wants to smoke cigarette. The patient denies any chest pain or shortness of breath. Ileostomy is working. The patient's stool is not as liquid as before. Discussed with nursing staff about the treatment plan. PHYSICAL EXAMINATION: VITAL SIGNS: Temperature 97.3, pulse 87, respiratory rate is 18, and blood pressure 121/80. HEENT: No facial asymmetry. Multiple absent teeth noted. NECK: Supple, no JVD. HEART: Regular. CHEST AND LUNGS: Equal in expansion, no expiratory wheezing. ABDOMEN: Soft with well-functioning ileostomy noted. Bowel sounds present. EXTREMITIES: No edema. CLINICAL IMPRESSION: 1. Hypotension, resolving. 2. Hyponatremia. 3. Acute kidney injury secondary to volume depletion. 4. Status post ileostomy. 5. Clostridium difficile colitis. 6. Psychotic disorder. PLAN: 1. Recheck BMP. 2. P.o. vancomycin. 3. Ileostomy care. 4. General nursing care. 5. Psychotic evaluation and management of her psychotic symptoms. 6. Care plan reviewed and discussed with staff. JOB# [id number]
[2018-06-29] MEDS ORDERED: Probiotic Screen MC PRN (09:45)
--- NOTE | 2018-06-29 15:41 | Progress Notes ---
DATE: 06/29/2018 SUBJECTIVE: The patient in the hospital, for about 5 hours. Noted by staff to be sitting on the floor, acting strange, impulsive at times, aggressive, impoverished, mumbling, rambling, disorganized, still impulsive, and unpredictable. Medications were noted. ASSESSMENT: The patient ongoing unruly and bizarre behaviors, psychotic behaviors, is gravely disabled. Continue Lexapro, Depakote. We will titrate and adjust medications as tolerated. PLAN: We will continue to monitor. The patient is not safe for a lower level of care. JOB# [id number]
[2018-06-29] MEDS: Vancomycin HCL 250 mg /10mL UDC PO SCH ×3 (15:47→22:00)
[2018-06-30 06:24] LABS: % BASOPHILS 0.7 % (0.0-2.0); % EOSINOPHILS 1.6 % (0.0-5.0); % MONOCYTES 10.4 % (2.0-10.0); % NEUTROPHILS 72.3 % (40.0-80.0); BASOPHILE ABSOLUTE 0.1 Th/cumm (0-0.2); EOSINOPHILE ABSOLUTE 0.1 Th/cmm (0.1-0.4); HEMATOCRIT 33.2 % (41.0-60); HEMOGLOBIN 11.2 gm/dL (12-16); LYMPHOCYTE ABSOLUTE 1.4 Th/cmm (1.5-3.0); MEAN CELL VOLUME 86.2 fl (80-99); MEAN CORPUSCULAR HEMOGLOBIN 29.2 pg (26.0-30.0); MEAN CORPUSCULAR HGB CONC 33.9 pg (28.0-36.0); MONOCYTE ABSOLUTE 0.9 Th/cmm (0.3-1.0); NEUTROPHILE ABSOLUTE 6.5 Th/cmm (1.8-8.0); PLATELET COUNT 503 Th/cmm (150-400); RED BLOOD COUNT 3.85 Mil/cmm (4.30-5.70); RED CELL DISTRIBUTION WIDTH 16.6 % (11.5-20.0)
[2018-06-30] MEDS: Lactobacillus Rhamnosus GG 15 Billion CFU CAP.SPRINK PO SCH (08:11)
[2018-06-30] MEDS: HALOPERIDOL PO SCH ×3 (08:11→20:41)
[2018-06-30 08:44] LABS: ALB/GLOB RATIO 0.7 (1.0-1.8); ALBUMIN 2.9 gm/dL (4.2-5.5); ALKALINE PHOSPHATASE 108 U/L (34-104); BILIRUBIN,TOTAL 0.1 mg/dL (0.3-1.0); BUN - UREA NITROGEN 37 mg/dL (7-25); CALCIUM SERUM 9.3 mg/dL (8.6-10.3); CARBON DIOXIDE 21.5 mEq/L (21.0-31.0); CHLORIDE 103 mEq/L (98-107); CREATININE - SERUM 1.3 mg/dL (0.7-1.3); GFR AFRICAN-AMERICAN > 60.0 ml/min (>90); GFR NON AFRICAN-AMERICAN 59.1 ml/min; GLUCOSE 89 mg/dL (70-105); POTASSIUM SERUM 4.5 mEq/L (3.5-5.1); SGOT 14 U/L (13-39); SGPT/ALT 19 U/L (7-52); SODIUM SERUM 130 mEq/L (136-145); TOTAL PROTEIN,SERUM 6.8 gm/dL (6.0-8.3)
[2018-06-30] MEDS: Vancomycin HCL 250 mg /10mL UDC PO SCH ×4 (13:30→20:41)
[2018-06-30] MEDS: Multivitamin Tab PO SCH (15:35)
[2018-06-30] MEDS: Benztropine 1 MG TAB PO SCH ×2 (15:35→16:41)
[2018-06-30] MEDS: Zinc Oxide Ointment 60 gm TP SCH (15:36)
--- NOTE | 2018-06-30 16:09 | Progress Notes ---
DATE: 06/30/2018 SUBJECTIVE: The patient seen and examined. The patient is ambulatory. The patient has no new complaint. The patient did have a followup lab, which revealed improving creatinine of 1.3 with a BUN of 37. Sodium has improved to 130. The patient still has loose BM, but better than before. PHYSICAL EXAMINATION: VITAL SIGNS: See nurses' note. HEENT: No facial asymmetry. Multiple absent teeth noted. NECK: Supple, no JVD. HEART: Regular. LUNGS: Clear to auscultation. ABDOMEN: Soft. Well-functioning ileostomy noted. Bowel sounds are present. EXTREMITIES: No edema. CLINICAL IMPRESSION: 1. Clostridium difficile colitis. 2. Diarrhea, improving. 3. Psychotic disorder. 4. Benign prostatic hypertrophy. 5. Acute kidney injury, resolving. 6. Degenerative joint disease. 7. Status post ileostomy. 8. Hyponatremia, improving. PLAN: 1. Continue p.o. vancomycin and p.o. sodium chloride tablet. 2. Continue to provide ileostomy care and general nursing care along with nutritional support. 3. Psych evaluation and management deferred to psychiatrist. JOB# [id number]
--- NOTE | 2018-07-01 01:02 | Progress Notes ---
DATE: 06/30/2018 SUBJECTIVE: The patient noted to be disoriented, impulsive, aggressive, bizarre, agitated, poorly oriented, trying to remove his colostomy bag, highly impulsive, unpredictable, ____ currently gravely disabled, unruly at times, needing constant redirection, prompting, less agitated. ASSESSMENT: The patient remains symptomatic, still bizarre, impulsive, compulsive unpredictable. PLAN: Medications were noted. We will increase dosing of Lexapro today. Continue antipsychotic medications. JOB# [id number]
[2018-07-01] MEDS: HALOPERIDOL PO SCH ×3 (09:09→22:06)
[2018-07-01] MEDS: Multivitamin Tab PO SCH (09:09)
[2018-07-01] MEDS: Zinc Oxide Ointment 60 gm TP SCH (09:11)
[2018-07-01] MEDS: Lactobacillus Rhamnosus GG 15 Billion CFU CAP.SPRINK PO SCH (09:11)
[2018-07-01] MEDS: Benztropine 1 MG TAB PO SCH ×2 (09:16→17:30)
[2018-07-01] MEDS: Vancomycin HCL 250 mg /10mL UDC PO SCH ×4 (10:31→22:05)
--- NOTE | 2018-07-01 21:56 | Progress Notes ---
DATE: 07/01/2018 Case was discussed with staff of the patient, reviewed records. Covering for Dr. Kumar. This is a well-known case to me as I have seen him before covering for Dr. Kumar. The patient has been in isolation because he was playing and taking off the colostomy bag. The patient continues to be loud, intrusive, yelling and screaming, impulsive, unpredictable gravely disabled, unruly, needing constant redirection, still bizarre, impulsive and unpredictable. No side effects of the medications, no sedation, no nausea and he is on Depakote 250 mg daily, Cogentin 1 mg twice a day, Lexapro 20 mg daily, and Haldol 6 mg 3 times a day and Zyprexa 20 mg twice a day. His Depakote level is 22.6, which is very low, which was checked yesterday. Because of his irritability, unpredictable, impulsive behavior, I will be increasing the dose twice a day and so far I will continue with outpatient group therapy, milieu therapy, adjust medication as needed. JOB# [id number]
--- NOTE | 2018-07-02 08:11 | Progress Notes ---
DATE: IDENTIFICATION: A 63-year-old male SUBJECTIVE: The patient seen and examined. The patient is lying in the bed. No new event. OBJECTIVE: VITAL SIGNS: Temperature 98.6, pulse 66, respiratory rate is 18, blood pressure 108/60. HEENT: No facial asymmetry. NECK: Supple, no JVD. HEART: Regular. CHEST AND LUNGS: Equal in expansion, no expiratory wheezing. ABDOMEN: Soft. No guarding. No rigidity. Bowel sounds are present. EXTREMITIES: No edema. CLINICAL IMPRESSION: 1. Clostridium difficile colitis. 2. Psychiatric disorder. 3. Hyponatremia. 4. Acute kidney injury and resolving. 5. Benign prostatic hypertrophy. 6. Degenerative joint disease. 7. Smoking cigarette. 8. History of nicotine dependency. PLAN: The p.o. vancomycin with p.o. sodium chloride drip tablet. Monitor labs. Continue to provide ileostomy care. General nursing care. Psych medication and psych followup. Fall precautions, nutritional support. Care plan reviewed and discussed. [facility]# [id number]
[2018-07-02 08:35] LABS: % BASOPHILS 1.1 % (0.0-2.0); % EOSINOPHILS 0.9 % (0.0-5.0); % LYMPHOCYTES 9.4 % (20.0-50.0); % MONOCYTES 5.4 % (2.0-10.0); % NEUTROPHILS 83.2 % (40.0-80.0); BASOPHILE ABSOLUTE 0.1 Th/cumm (0-0.2); EOSINOPHILE ABSOLUTE 0.1 Th/cmm (0.1-0.4); HEMATOCRIT 31.6 % (41.0-60); HEMOGLOBIN 10.7 gm/dL (12-16); LYMPHOCYTE ABSOLUTE 1.1 Th/cmm (1.5-3.0); MEAN CELL VOLUME 86.4 fl (80-99); MEAN CORPUSCULAR HEMOGLOBIN 29.3 pg (26.0-30.0); MEAN CORPUSCULAR HGB CONC 33.9 pg (28.0-36.0); MEAN PLATELET VOLUME 7.1 fl; MONOCYTE ABSOLUTE 0.6 Th/cmm (0.3-1.0); NEUTROPHILE ABSOLUTE 9.5 Th/cmm (1.8-8.0); PLATELET COUNT 462 Th/cmm (150-400); RED BLOOD COUNT 3.66 Mil/cmm (4.30-5.70); RED CELL DISTRIBUTION WIDTH 17.4 % (11.5-20.0); WHITE BLOOD COUNT 11.4 Th/cmm (4.8-10.8)
[2018-07-02 09:14] LABS: ALB/GLOB RATIO 0.8 (1.0-1.8); ALBUMIN 2.8 gm/dL (4.2-5.5); ALKALINE PHOSPHATASE 101 U/L (34-104); BILIRUBIN,TOTAL 0.2 mg/dL (0.3-1.0); BUN - UREA NITROGEN 36 mg/dL (7-25); CALCIUM SERUM 9.1 mg/dL (8.6-10.3); CARBON DIOXIDE 21.8 mEq/L (21.0-31.0); CHLORIDE 99 mEq/L (98-107); CREATININE - SERUM 1.2 mg/dL (0.7-1.3); GFR AFRICAN-AMERICAN > 60.0 ml/min (>90); GFR NON AFRICAN-AMERICAN > 60.0 ml/min; GLUCOSE 67 mg/dL (70-105); POTASSIUM SERUM 3.8 mEq/L (3.5-5.1); SGOT 15 U/L (13-39); SGPT/ALT 16 U/L (7-52); SODIUM SERUM 128 mEq/L (136-145); TOTAL PROTEIN,SERUM 6.5 gm/dL (6.0-8.3)
[2018-07-02] MEDS: Zinc Oxide Ointment 60 gm TP SCH (09:17)
[2018-07-02] MEDS: Multivitamin Tab PO SCH (09:19)
[2018-07-02] MEDS: Benztropine 1 MG TAB PO SCH ×2 (09:20→17:39)
[2018-07-02] MEDS: HALOPERIDOL PO SCH ×3 (09:20→20:51)
[2018-07-02] MEDS: Vancomycin HCL 250 mg /10mL UDC PO SCH ×4 (09:26→20:50)
--- NOTE | 2018-07-02 22:46 | Progress Notes ---
DATE: 07/02/2018 DATE OF EVALUATION: 07/02/2018 The patient seen and examined. The patient is lying in the bed. The patient did have blood test done, which revealed sodium of 128 with normal creatinine. According to the nursing staff, the patient is able to eat well. The patient does not have any increasing diarrhea. The patient wants to smoke cigarettes. The patient denies. It is unable to get meaningful history from the patient. PHYSICAL EXAMINATION: VITAL SIGNS: Temperature 97.6, pulse 74, respiratory rate 18, blood pressure 100/50. HEENT: No facial asymmetry. Multiple absent teeth noted. NECK: Supple, no JVD, no hepatojugular reflux, thyromegaly. HEART: Both heart sounds are regular. CHEST AND LUNGS: Equal in expansion, no expiratory wheezing. ABDOMEN: Soft. No guarding, no rigidity. Well-functioning ileostomy noted. EXTREMITIES: No edema. CLINICAL IMPRESSION: 1. Clostridium difficile colitis. 2. Hyponatremia. 3. Acute kidney injury, resolved. 4. Benign prostatic hypertrophy. 5. Degenerative joint disease. PLAN: 1. Continue p.o. vancomycin. 2. Sodium chloride tablet. 3. Psychiatric medication and psychiatric followup. 4. Nutritional support. 5. Probiotic. 6. General nursing care. 7. Continue other medicine as prescribed. 8. Care plan reviewed and discussed with staff. JOB# [id number]
--- NOTE | 2018-07-03 01:45 | Progress Notes ---
DATE: 07/02/2018 SUBJECTIVE: Case was discussed with staff of the patient and reviewed records. The patient continues to be internally preoccupied with episodes of yelling and screaming. Continues to need observation because is taking his colostomy bag. Continues to be unpredictable, impulsive, needing redirection. Continues to have poor insight and unable to make safe plan for self-care. No side effects with the medication, no sedation, no nausea, or no extrapyramidal symptoms. PLAN: We will continue to work with the patient in group therapy, milieu therapy, and adjust medication as needed. JOB# [id number]
[2018-07-03] MEDS: Benztropine 1 MG TAB PO SCH ×2 (09:44→17:52)
[2018-07-03] MEDS: HALOPERIDOL PO SCH ×3 (09:45→21:15)
[2018-07-03] MEDS: Multivitamin Tab PO SCH (09:45)
[2018-07-03] MEDS: Zinc Oxide Ointment 60 gm TP SCH (09:46)
--- NOTE | 2018-07-03 13:16 | Progress Notes ---
DATE: 07/03/2018 SUBJECTIVE: The patient is seen and examined. Unable to get meaningful history today. The patient is taking his medication as directed. The patient remained hemodynamically stable. PHYSICAL EXAMINATION: VITAL SIGNS: Temperature 98.1, pulse 66, respiratory rate 18, blood pressure 113/64. HEENT: No facial asymmetry. Poor dentition. NECK: Supple, no JVD. HEART: Regular. LUNGS: Clear. ABDOMEN: Soft, well-functioning ileostomy noted. EXTREMITIES: No edema. CLINICAL IMPRESSION: 1. Clostridium difficile colitis. 2. Status post ileostomy. 3. Benign prostatic hypertrophy. 4. Psychotic disorder. 5. Degenerative joint disease. 6. Hyponatremia. 7. Anemia of chronic illness. PLAN: 1. Follow up lab. 2. Continue vancomycin. 3. Continue Flomax. 4. Continue sodium chloride tablets. 5. Ileostomy care. 6. Psychotic evaluation and management deferred to psychiatrist. 7. Care plan reviewed and discussed with staff. JOB# [id number]
--- NOTE | 2018-07-03 21:04 | Progress Notes ---
DATE: 07/03/2018 PROGRESS ON THE UNIT: Case was discussed with staff of the patient, reviewed records. The staff reports that he has been acting inappropriate, grabbing people inappropriately. He continues to have poor insight. He continues to be unpredictable, impulsive, needing redirection. He continues to have poor insight, unable to make safe plan for self-care. He is compliant with the medication with no side effects, no sedation, no nausea. I did increase his Depakote dose yesterday to help with his agitated, aggressive and impulsive behavior, inappropriate behavior. He is already on Zyprexa 20 mg twice a day. PLAN: We will continue to work with the patient in group therapy and milieu therapy, adjust medications as needed. JOB# [id number]
[2018-07-03] MEDS: Vancomycin HCL 250 mg /10mL UDC PO SCH (21:15)
[2018-07-04 06:44] LABS: % BASOPHILS 1.1 % (0.0-2.0); % EOSINOPHILS 1.5 % (0.0-5.0); % LYMPHOCYTES 12.9 % (20.0-50.0); % MONOCYTES 7.4 % (2.0-10.0); % NEUTROPHILS 77.1 % (40.0-80.0); BASOPHILE ABSOLUTE 0.1 Th/cumm (0-0.2); EOSINOPHILE ABSOLUTE 0.2 Th/cmm (0.1-0.4); HEMOGLOBIN 10.9 gm/dL (12-16); LYMPHOCYTE ABSOLUTE 1.4 Th/cmm (1.5-3.0); MEAN CELL VOLUME 85.8 fl (80-99); MEAN CORPUSCULAR HEMOGLOBIN 29.2 pg (26.0-30.0); MEAN PLATELET VOLUME 7.4 fl; MONOCYTE ABSOLUTE 0.8 Th/cmm (0.3-1.0); NEUTROPHILE ABSOLUTE 8.2 Th/cmm (1.8-8.0); PLATELET COUNT 542 Th/cmm (150-400); RED BLOOD COUNT 3.74 Mil/cmm (4.30-5.70); RED CELL DISTRIBUTION WIDTH 17.5 % (11.5-20.0); WHITE BLOOD COUNT 10.7 Th/cmm (4.8-10.8)
[2018-07-04 06:56] LABS: ALB/GLOB RATIO 0.8 (1.0-1.8); ALKALINE PHOSPHATASE 99 U/L (34-104); ANION GAP 11.1 (7.0-16.0); BILIRUBIN,TOTAL 0.2 mg/dL (0.3-1.0); BUN - UREA NITROGEN 32 mg/dL (7-25); CALCIUM SERUM 9.1 mg/dL (8.6-10.3); CARBON DIOXIDE 22.7 mEq/L (21.0-31.0); CHLORIDE 104 mEq/L (98-107); CREATININE - SERUM 1.1 mg/dL (0.7-1.3); GFR AFRICAN-AMERICAN > 60.0 ml/min (>90); GFR NON AFRICAN-AMERICAN > 60.0 ml/min; GLUCOSE 90 mg/dL (70-105); POTASSIUM SERUM 3.8 mEq/L (3.5-5.1); SGOT 17 U/L (13-39); SGPT/ALT 15 U/L (7-52); SODIUM SERUM 134 mEq/L (136-145); TOTAL PROTEIN,SERUM 6.8 gm/dL (6.0-8.3)
[2018-07-04] MEDS: Benztropine 1 MG TAB PO SCH ×2 (09:28→17:33)
[2018-07-04] MEDS: HALOPERIDOL PO SCH ×3 (09:28→20:28)
[2018-07-04] MEDS: Multivitamin Tab PO SCH (09:28)
[2018-07-04] MEDS: Vancomycin HCL 250 mg /10mL UDC PO SCH ×4 (09:29→20:27)
[2018-07-04] MEDS: Zinc Oxide Ointment 60 gm TP SCH (09:30)
--- NOTE | 2018-07-04 17:34 | Progress Notes ---
DATE: 07/04/2018 Case was discussed with staff of the patient, reviewed records. The patient continues to have episodes of irritability, agitation, acting inappropriate. Continues to have poor insight. Continues to be unpredictable, impulsive, needing redirection. He is on 1:1. No side effects of the medication, no sedation, no nausea, no extrapyramidal symptoms. We will continue the patient in group therapy, milieu therapy, adjust the medication as needed. JOB# [id number]
[2018-07-05] MEDS: Vancomycin HCL 250 mg /10mL UDC PO SCH ×2 (08:26→12:33)
[2018-07-05] MEDS: Benztropine 1 MG TAB PO SCH ×2 (08:33→16:37)
[2018-07-05] MEDS: Multivitamin Tab PO SCH (08:34)
[2018-07-05] MEDS: HALOPERIDOL PO SCH ×3 (08:34→21:14)
[2018-07-05] MEDS: Zinc Oxide Ointment 60 gm TP SCH (08:36)
--- NOTE | 2018-07-05 22:52 | Progress Notes ---
DATE: 07/05/2018 The patient is currently in the hospital, irritable, agitated, inappropriate at times, on a one-to-one, unruly behaviors, highly impulsive, unpredictable, slept fairly well throughout the night, allowing ADLs, colostomy bag changes, sometimes exhibiting impulsive behaviors and unruly behaviors. ASSESSMENT: The patient is highly disorganized, psychotic, nonsensical, poorly disoriented. PLAN: We will continue to monitor. The patient with ongoing behaviors, currently on higher dose of Lexapro, on a one-to-one. Medications were noted. JOB# [id number]
[2018-07-06] MEDS: Benztropine 1 MG TAB PO SCH ×2 (08:25→17:22)
[2018-07-06] MEDS: HALOPERIDOL PO SCH ×4 (08:25→20:44)
[2018-07-06] MEDS: Multivitamin Tab PO SCH (08:26)
[2018-07-06] MEDS: Zinc Oxide Ointment 60 gm TP SCH (08:26)
[2018-07-06] MEDS ORDERED: Probiotic Screen MC PRN (11:11)
--- NOTE | 2018-07-06 18:36 | Progress Notes ---
DATE: 07/06/2018 The patient is disorganized, confused, resting at this time, resting comfortably in bed overnight, still remains impulsive, compulsive, unpredictable, disorganized, making nonsensical statements. The patient still smearing feces on toilet ____ floor needing a lot of disinfectant, labile, demanding. ASSESSMENT: The is psychotic, bizarre, disorganized, impulsive, unpredictable. PLAN: We will continue to monitor. Check labs. Depakote level at 22.6, I will be increasing his dosages. We will monitor and follow up. JOB# [id number]
--- NOTE | 2018-07-06 21:30 | Progress Notes ---
DATE: 07/06/2018 SUBJECTIVE: The patient seen and examined. PHYSICAL EXAMINATION: VITAL SIGNS: Temperature 98.4, pulse is 72, respiratory rate 20, and blood pressure 100/56. HEENT: No facial asymmetry. Poor dentition noted. NECK: Supple. No JVD. HEART: Regular. CHEST: Lung equal in expansion, no expiratory wheezing. ABDOMEN: Soft. Ileostomy noted. Bowel sounds are present. EXTREMITIES: No edema. CLINICAL IMPRESSION: 1. Clostridium difficile colitis. 2. Status post ileostomy. 3. Psychotic disorder. 4. Chronic obstructive pulmonary disease. 5. Benign prostatic hypertrophy. 6. Degenerative joint disease. 7. Significant smoking cigarettes. PLAN: At this time, 1. Ileostomy care. 2. Psych medication. 3. Psych followup. 4. Continue sodium chloride tablets along with Flomax for BPH. 5. Symptoms management, general nursing care along with nutritional support. Care plan reviewed. JOB# [id number]
[2018-07-07] MEDS: HALOPERIDOL PO SCH ×3 (09:02→21:00)
[2018-07-07] MEDS: Lactobacillus Rhamnosus GG 15 Billion CFU CAP.SPRINK PO SCH (09:02)
[2018-07-07] MEDS: Multivitamin Tab PO SCH (09:02)
[2018-07-07] MEDS: Benztropine 1 MG TAB PO SCH ×2 (09:02→16:46)
[2018-07-07] MEDS: Zinc Oxide Ointment 60 gm TP SCH (09:03)
--- NOTE | 2018-07-08 01:01 | Progress Notes ---
DATE: 07/07/2018 The patient remains symptomatic, disorganized, bizarre, still pulling the colostomy bag, unable to attend to his basic needs, needing a lot of prompting, redirection, no aggressive behaviors, no agitation. He cannot take care of himself due to the severity of his medical and mental health issues. Taking his medications, no side effects. MEDICATIONS: Reviewed. ASSESSMENT: The patient remains symptomatic, gravely disabled, ongoing impulsivity, compulsivity, unpredictability. We will continue to monitor. We are actively trying to find a place for him to go. JOB# [id number]
[2018-07-08] MEDS: Lactobacillus Rhamnosus GG 15 Billion CFU CAP.SPRINK PO SCH (09:12)
[2018-07-08] MEDS: HALOPERIDOL PO SCH ×3 (09:12→21:06)
[2018-07-08] MEDS: Multivitamin Tab PO SCH (09:13)
[2018-07-08] MEDS: Benztropine 1 MG TAB PO SCH ×2 (09:13→16:54)
[2018-07-08] MEDS: Zinc Oxide Ointment 60 gm TP SCH (09:26)
--- NOTE | 2018-07-08 21:25 | Progress Notes ---
DATE: 07/08/2018 SUBJECTIVE: The patient seen, chart reviewed, discussed with staff. The patient is currently in the hospital, psychotic, disorganized, bizarre and poor impulse control, seems calmer, somewhat more interactive, but still talking nonsense, needing a higher level of redirection and prompting, pulling at his colostomy bag a lot less, eating fairly well with some prompting, needing help with ADLs, still gravely disabled. Medications were noted. ASSESSMENT: The patient remains symptomatic, disorganized, making nonsensical statements. PLAN: We will continue to monitor, adjust and titrate medications. We are actively trying to find a place for him to go. JOB# [id number]
[2018-07-09] MEDS: Multivitamin Tab PO SCH (08:22)
[2018-07-09] MEDS: Lactobacillus Rhamnosus GG 15 Billion CFU CAP.SPRINK PO SCH (08:22)
[2018-07-09] MEDS: Benztropine 1 MG TAB PO SCH ×2 (08:23→16:31)
[2018-07-09] MEDS: HALOPERIDOL PO SCH ×3 (08:23→20:42)
[2018-07-09] MEDS: Zinc Oxide Ointment 60 gm TP SCH ×2 (08:25→08:33)
--- NOTE | 2018-07-10 01:00 | Progress Notes ---
DATE: 07/09/2018 SUBJECTIVE: The patient seen and examined. The patient is ambulatory. No new event noted by staff. Does not provide any meaningful history today. PHYSICAL EXAMINATION: VITAL SIGNS: See nurse's note. HEENT: Poor dentition. NECK: Supple, no JVD. HEART: Regular. LUNGS: Have mild expiratory wheezing. ABDOMEN: Soft. Ileostomy noted. Bowel sounds present. EXTREMITIES: No edema. CLINICAL IMPRESSION: 1. Status post ileostomy. 2. Clostridium difficile colitis. 3. Chronic obstructive pulmonary disease. 4. Benign prostatic hypertrophy. 5. Psychotic disorder. 6. Degenerative joint disease. PLAN: 1. Ileostomy care. 2. Antibiotic. 3. Probiotic. 4. Symptoms management. 5. General nursing care. 6. Psych medication. 7. Psych followup. 8. Care plan reviewed and discussed with staff. JOB# [id number]
--- NOTE | 2018-07-10 01:51 | Progress Notes ---
DATE: 07/09/2018 SUBJECTIVE: The patient remains confused, unkempt, mostly to himself, labile, yells at times, gravely disabled, unable to care for his basic food, clothing, skilled nursing, requiring constant redirection, prompting highly impulsive, unpredictable, compulsive, pulling at his colostomy bag. ASSESSMENT: The patient remains symptomatic, unruly, unpredictable, gravely disabled. Medications were noted. PLAN: We will continue to monitor. We are actively trying to help him with placement. [facility]# [id number]
--- NOTE | 2018-07-10 07:25 | Progress Notes ---
DATE: 07/10/2018 The patient remains symptomatic episodes of yelling, screaming, more redirectable, erratic sleep still impulsive, unpredictable, pulling a colostomy, needing a high level of prompting, redirection on a 1:1. ASSESSMENT: The patient rambling, disorganized, psychotic, impulsive. Medications were noted. We will continue to monitor. The patient is gravely disabled. We are working hard on placements. JOB# [id number]
[2018-07-10] MEDS: Multivitamin Tab PO SCH (08:50)
[2018-07-10] MEDS: HALOPERIDOL PO SCH ×3 (08:51→20:46)
[2018-07-10] MEDS: Benztropine 1 MG TAB PO SCH ×2 (08:52→16:47)
[2018-07-10] MEDS: Lactobacillus Rhamnosus GG 15 Billion CFU CAP.SPRINK PO SCH (08:52)
[2018-07-10] MEDS: Zinc Oxide Ointment 60 gm TP SCH (08:52)
--- NOTE | 2018-07-11 06:41 | Progress Notes ---
DATE: 07/11/2018 SUBJECTIVE: The patient did not sleep much last night, irritable, sometimes agitated, restless, and yelling. He is somewhat calmer, more redirectable, less impulsive, still pulling colostomy however. Medications were noted. ASSESSMENT: The patient remains disorganized, symptomatic, gravely disabled, cannot take care of himself, pulls a colostomy bag requiring near constant nursing supervision. PLAN: We will continue to monitor, increase Ambien. JOB# [id number]
[2018-07-11] MEDS: Multivitamin Tab PO SCH (09:47)
[2018-07-11] MEDS: Lactobacillus Rhamnosus GG 15 Billion CFU CAP.SPRINK PO SCH (09:47)
[2018-07-11] MEDS: Benztropine 1 MG TAB PO SCH ×2 (09:47→17:53)
[2018-07-11] MEDS: HALOPERIDOL PO SCH ×3 (09:47→21:40)
[2018-07-11] MEDS: Zinc Oxide Ointment 60 gm TP SCH (09:58)
[2018-07-12] MEDS: Benztropine 1 MG TAB PO SCH ×2 (08:21→16:07)
[2018-07-12] MEDS: HALOPERIDOL PO SCH ×3 (08:22→20:42)
[2018-07-12] MEDS: Multivitamin Tab PO SCH (08:23)
[2018-07-12] MEDS: Lactobacillus Rhamnosus GG 15 Billion CFU CAP.SPRINK PO SCH (08:23)
[2018-07-12] MEDS: Zinc Oxide Ointment 60 gm TP SCH (08:25)
[2018-07-12 10:16] LABS: % EOSINOPHILS 1.9 % (0.0-5.0); % LYMPHOCYTES 13.3 % (20.0-50.0); % MONOCYTES 7.8 % (2.0-10.0); EOSINOPHILE ABSOLUTE 0.1 Th/cmm (0.1-0.4); HEMATOCRIT 29.4 % (41.0-60); HEMOGLOBIN 9.7 gm/dL (12-16); LYMPHOCYTE ABSOLUTE 0.9 Th/cmm (1.5-3.0); MEAN CORPUSCULAR HEMOGLOBIN 29.1 pg (26.0-30.0); MEAN CORPUSCULAR HGB CONC 33.1 pg (28.0-36.0); MEAN PLATELET VOLUME 7.6 fl; MONOCYTE ABSOLUTE 0.6 Th/cmm (0.3-1.0); NEUTROPHILE ABSOLUTE 5.5 Th/cmm (1.8-8.0); PLATELET COUNT 303 Th/cmm (150-400); RED BLOOD COUNT 3.34 Mil/cmm (4.30-5.70); RED CELL DISTRIBUTION WIDTH 18.5 % (11.5-20.0); WHITE BLOOD COUNT 7.1 Th/cmm (4.8-10.8)
[2018-07-12 10:32] LABS: ALB/GLOB RATIO 0.8 (1.0-1.8); ALBUMIN 2.8 gm/dL (4.2-5.5); ALKALINE PHOSPHATASE 93 U/L (34-104); ANION GAP 8.5 (7.0-16.0); BILIRUBIN,TOTAL 0.2 mg/dL (0.3-1.0); BUN - UREA NITROGEN 31 mg/dL (7-25); CALCIUM SERUM 8.9 mg/dL (8.6-10.3); CARBON DIOXIDE 25.4 mEq/L (21.0-31.0); CHLORIDE 108 mEq/L (98-107); CREATININE - SERUM 1.2 mg/dL (0.7-1.3); GFR AFRICAN-AMERICAN > 60.0 ml/min (>90); GFR NON AFRICAN-AMERICAN > 60.0 ml/min; GLUCOSE 66 mg/dL (70-105); POTASSIUM SERUM 3.9 mEq/L (3.5-5.1); SGOT 13 U/L (13-39); SGPT/ALT 9 U/L (7-52); SODIUM SERUM 138 mEq/L (136-145); TOTAL PROTEIN,SERUM 6.2 gm/dL (6.0-8.3)
--- NOTE | 2018-07-12 11:07 | Progress Notes ---
DATE: 07/12/2018 SUBJECTIVE: The patient seen and examined. The patient is restless, very demanding. Unable to provide any meaningful history. The patient continues to have unsteady gait and he is using wheelchair and sometimes he walks on his own. The patient still has a 1:1 sitter due to high risk for fall. OBJECTIVE: VITAL SIGNS: Temperature 98, pulse is 90, respiratory rate is 20, blood pressure 118/71. HEENT: No facial asymmetry. Poor dentition noted. NECK: Supple, no JVD. HEART: Regular. CHEST AND LUNGS: Equal in expansion, no expiratory wheezing. ABDOMEN: Soft. Well-functioning ileostomy in the right lower quadrant noted. EXTREMITIES: No edema. NEUROLOGIC: Alert, awake, and follows commands. CLINICAL IMPRESSION: 1. Hyponatremia, currently on sodium chloride tablet. 2. Normocytic normochromic anemia. 3. Psychotic disorder. 4. Benign prostatic hypertrophy. 5. Status post ileostomy. 6. Degenerative joint disease. 7. Smoking cigarette. 8. High risk for fall. 9. Psychotic disorder. PLAN: 1. Ileostomy care. 2. Follow up BMP and CBC. 3. Continue Proscar and Flomax. 4. ___ to make his stool bulkier. Continue prior ileostomy care, nutritional support, general nursing care. Psych followup and psych medication care plan has been reviewed and discussed with staff as well. JOB# [id number]
--- NOTE | 2018-07-12 16:13 | Progress Notes ---
DATE: 07/12/2018 SUBJECTIVE: The patient was seen and he remained psychotic and disorganized, unruly at times, needing constant supervision, redirection and prompting, still trying to pull a colostomy bag, impulsive, compulsive, unpredictable, nonsensical statements, sleeping fairly well. ASSESSMENT: The patient is disorganized, gravely disabled, making nonsensical statements, still psychotic. PLAN: We will continue to monitor, adjust and titrate medications. We are seeking help with placements. He is conserved. JOB# [id number]
[2018-07-13] MEDS: Multivitamin Tab PO SCH (09:01)
[2018-07-13] MEDS: Lactobacillus Rhamnosus GG 15 Billion CFU CAP.SPRINK PO SCH (09:01)
[2018-07-13] MEDS: HALOPERIDOL PO SCH ×4 (09:02→21:50)
[2018-07-13] MEDS: Benztropine 1 MG TAB PO SCH ×2 (09:04→17:59)
[2018-07-13] MEDS: Zinc Oxide Ointment 60 gm TP SCH (09:05)
--- NOTE | 2018-07-14 01:12 | Progress Notes ---
DATE: 07/13/2018 SUBJECTIVE: The patient remains symptomatic, disorganized, bizarre, still on one-to-one requiring a lot of prompting, redirection, still noted to be impulsive, compulsive, gravely disabled. Medications were noted. ASSESSMENT: The patient is bizarre, symptomatic, but improving, calmer, remains gravely disabled. PLAN: We will continue to monitor, work on the patient's coping, insight. Adjust medications. We are working hard on placement. JOB# [id number]
[2018-07-14] MEDS: Benztropine 1 MG TAB PO SCH ×2 (09:15→16:54)
[2018-07-14] MEDS: Lactobacillus Rhamnosus GG 15 Billion CFU CAP.SPRINK PO SCH (09:15)
[2018-07-14] MEDS: HALOPERIDOL PO SCH ×3 (09:15→20:39)
[2018-07-14] MEDS: Multivitamin Tab PO SCH (09:15)
[2018-07-14] MEDS: Zinc Oxide Ointment 60 gm TP SCH (09:20)
--- NOTE | 2018-07-14 18:28 | Progress Notes ---
DATE: 07/14/2018 SUBJECTIVE: The patient currently in the hospital, seen today 07/14/2018. Noted to be acting strange unruly, not really following directions very well, still pulling out his colostomy at times. Noted to be impulsive, compulsive, still gravely disabled, cannot take care of himself, disorganized on exam. ASSESSMENT: The patient remains symptomatic, unruly, gravely disabled. He is significantly calmer. We are trying to help him with placement. Nursing staff noting that he needs constant supervision, gets irritable at times, mood swings. We will monitor and follow up. JOB# [id number]
[2018-07-15] MEDS: Multivitamin Tab PO SCH (08:48)
[2018-07-15] MEDS: HALOPERIDOL PO SCH ×3 (08:48→21:34)
[2018-07-15] MEDS: Benztropine 1 MG TAB PO SCH ×2 (08:50→16:36)
[2018-07-15] MEDS: Lactobacillus Rhamnosus GG 15 Billion CFU CAP.SPRINK PO SCH (08:50)
[2018-07-15] MEDS: Zinc Oxide Ointment 60 gm TP SCH (09:30)
--- NOTE | 2018-07-15 16:58 | Progress Notes ---
DATE: 07/15/2018 SUBJECTIVE: The patient is calm. States that he is not pulling at his colostomy bag, but the patient is still impulsively touching it, still agitated, paranoid, demanding, still combative at times. Mood unpredictable. He is calm this morning, cooperative, states he feels "okay," "no voices today doctor." Sleeping well with film flat inspector awakenings, still on a 1:1. Unable to care for his basic needs at this time. He is conserved. ASSESSMENT: The patient calmer, more cooperative, psychotic symptoms dissipating. He remains impulsive, unpredictable, unable to care for his basic needs. PLAN: We will continue to monitor. Adjust and titrate medications. We are making efforts to place him through his conservator. [facility]# [id number]
[2018-07-16] MEDS: Multivitamin Tab PO SCH (09:00)
[2018-07-16] MEDS: HALOPERIDOL PO SCH ×3 (09:00→21:07)
[2018-07-16] MEDS: Benztropine 1 MG TAB PO SCH ×2 (09:01→16:21)
[2018-07-16] MEDS: Lactobacillus Rhamnosus GG 15 Billion CFU CAP.SPRINK PO SCH (09:01)
[2018-07-16] MEDS: Zinc Oxide Ointment 60 gm TP SCH (09:01)
--- NOTE | 2018-07-16 11:54 | Progress Notes ---
DATE: 07/16/2018 SUBJECTIVE: The patient in the hospital disorganized "not hearing voices." We are trying to get in touch with the conservator, trying to find places that the patient can go. He is a lot calmer, less restless, still disorganized, demanding at times, still trying to touch the colostomy bag, impulsive. Medications were noted. PLAN: We will continue to monitor. The patient disorganized, gravely disabled. We are trying to work with the conservator for placement. JOB# [id number]
--- NOTE | 2018-07-17 08:25 | Progress Notes ---
DATE: 07/17/2018 SUBJECTIVE: The patient is currently in the hospital stating, "I have no voices doctor," calmer, more cooperative, still impulsively talking and touching the colostomy area, requiring a 1:1 high level of supervision, sleeping fairly well with industrial engineering technician awakenings, requiring a higher level of redirection. Mood "okay." Staff notes he has been calmer. ASSESSMENT: The patient is improving, calmer, but remains impulsive, unpredictable, compulsive, gravely disabled, conserved. PLAN: We are working hard to secure a safe discharge and discharge per plan. We will monitor and follow up. JOB# [id number]
[2018-07-17] MEDS: Multivitamin Tab PO SCH (09:19)
[2018-07-17] MEDS: HALOPERIDOL PO SCH ×3 (09:20→20:46)
[2018-07-17] MEDS: Benztropine 1 MG TAB PO SCH ×2 (09:22→16:28)
[2018-07-17] MEDS: Lactobacillus Rhamnosus GG 15 Billion CFU CAP.SPRINK PO SCH (09:22)
[2018-07-17] MEDS: Zinc Oxide Ointment 60 gm TP SCH (09:26)
--- NOTE | 2018-07-17 20:03 | Progress Notes ---
DATE: 07/17/2018 SUBJECTIVE: The patient is seen and examined. The patient is calm, pleasant in manner. Alert, awake and oriented. The patient remained anxious and confused at the time. No new event reported by nursing staff. PHYSICAL EXAMINATION: VITAL SIGNS: Temperature 98.5, pulse 75, respiratory rate 18, blood pressure 106/67. HEENT: Poor dentition. NECK: Supple, no JVD. HEART: Regular. CHEST AND LUNGS: Equal in expansion, no expiratory wheezing. ABDOMEN: Soft. A well-functioning ileostomy in the right lower quadrant noted. Bowel sounds are present. EXTREMITIES: No edema. NEUROLOGIC: Alert, awake, follows commands. CLINICAL IMPRESSION: 1. Status post ileostomy. 2. Hyponatremia. 3. Benign prostatic hypertrophy. 4. Degenerative joint disease. 5. Smoking. 6. Psychotic disorder. 7. Debility. PLAN: 1. Recheck BMP and CBC in order to evaluate the patient's electrolyte imbalance and hemoglobin. 2. Continue to provide Metamucil. 3. Continue Flomax and Proscar for now. Continue to provide psychiatric medication and psych followup. Ileostomy care as directed. Fall precautions. We will continue to follow up while the patient is in the hospital. JOB# [id number]
[2018-07-18] MEDS: HALOPERIDOL PO SCH ×3 (09:55→20:25)
[2018-07-18] MEDS: Benztropine 1 MG TAB PO SCH ×2 (09:56→17:41)
[2018-07-18] MEDS: Multivitamin Tab PO SCH (09:56)
[2018-07-18] MEDS: Lactobacillus Rhamnosus GG 15 Billion CFU CAP.SPRINK PO SCH (09:56)
[2018-07-18] MEDS: Zinc Oxide Ointment 60 gm TP SCH (09:57)
--- NOTE | 2018-07-18 10:24 | Progress Notes ---
DATE: 07/18/2018 SUBJECTIVE: The patient in the hospital, remains gravely disabled, only sestamibi "I have no voices," not drive. No voices to monitor. The patient remains impulsive, still touching the colostomy area requiring a higher level of supervision due to his impulsivity. The patient is sleeping fairly well with residence manager awakenings, unable to care for his basic needs at this time. ASSESSMENT: The patient improving, calmer, impulsive, unpredictable, concerns at this time and cannot take care of his basic food, clothing, and prison. Medications were noted. We will monitor and follow up work on the safe disposition plan. JOB# [id number]
[2018-07-18 12:17] LABS: % BASOPHILS 0.7 % (0.0-2.0); % EOSINOPHILS 2.9 % (0.0-5.0); % LYMPHOCYTES 20.8 % (20.0-50.0); % MONOCYTES 12.8 % (2.0-10.0); % NEUTROPHILS 62.8 % (40.0-80.0); EOSINOPHILE ABSOLUTE 0.2 Th/cmm (0.1-0.4); LYMPHOCYTE ABSOLUTE 1.1 Th/cmm (1.5-3.0); MEAN CELL VOLUME 88.5 fl (80-99); MEAN CORPUSCULAR HEMOGLOBIN 29.3 pg (26.0-30.0); MEAN CORPUSCULAR HGB CONC 33.2 pg (28.0-36.0); MEAN PLATELET VOLUME 8.5 fl; MONOCYTE ABSOLUTE 0.7 Th/cmm (0.3-1.0); NEUTROPHILE ABSOLUTE 3.2 Th/cmm (1.8-8.0); PLATELET COUNT 214 Th/cmm (150-400); RED BLOOD COUNT 3.39 Mil/cmm (4.30-5.70); RED CELL DISTRIBUTION WIDTH 19.5 % (11.5-20.0); WHITE BLOOD COUNT 5.2 Th/cmm (4.8-10.8)
[2018-07-18 12:32] LABS: ANION GAP 8.8 (7.0-16.0); BUN - UREA NITROGEN 37 mg/dL (7-25); CALCIUM SERUM 8.9 mg/dL (8.6-10.3); CARBON DIOXIDE 26.3 mEq/L (21.0-31.0); CHLORIDE 106 mEq/L (98-107); CREATININE - SERUM 1.1 mg/dL (0.7-1.3); GFR AFRICAN-AMERICAN > 60.0 ml/min (>90); GFR NON AFRICAN-AMERICAN > 60.0 ml/min; GLUCOSE 88 mg/dL (70-105); POTASSIUM SERUM 4.1 mEq/L (3.5-5.1); SODIUM SERUM 137 mEq/L (136-145)
[2018-07-19] MEDS: HALOPERIDOL PO SCH ×3 (08:26→20:56)
[2018-07-19] MEDS: Benztropine 1 MG TAB PO SCH ×2 (08:26→16:19)
[2018-07-19] MEDS: Lactobacillus Rhamnosus GG 15 Billion CFU CAP.SPRINK PO SCH (08:27)
[2018-07-19] MEDS: Multivitamin Tab PO SCH (08:28)
[2018-07-19] MEDS: Zinc Oxide Ointment 60 gm TP SCH (09:30)
--- NOTE | 2018-07-19 14:52 | Progress Notes ---
DATE: 07/19/2018 SUBJECTIVE: The patient is currently in the hospital, remains gravely, disabled. States "I have no voices doctor, I have now voices doctor." The patient remains impulsive, still touching around the colostomy area, requiring a higher level of supervision, impulsive, unpredictable, mostly withdrawn, disengaged, keeps to himself, mumble to self, making nonsensical statements. However, is significantly calmer, still on a 1:1, no longer is agitated. No hitting. PLAN: We will continue to monitor. We are actively trying to confirm the safe disposition plan to the conservator. JOB# [id number]
--- NOTE | 2018-07-20 00:24 | Progress Notes ---
DATE: 07/19/2018 SUBJECTIVE: The patient seen and examined. The patient is ambulatory. No new event noted. Discussed with nursing staff about their concern. The patient is very cooperative, has an ileostomy on the right lower quadrant and so far, the patient is allowing them to manage and take care of her ileostomy. PHYSICAL EXAMINATION: VITAL SIGNS: Temperature 98.5, pulse 65, respiratory rate is 20, and blood pressure 105/69. HEENT: No facial asymmetry. NECK: Supple, no JVD. HEART: Regular. CHEST: Lung equal in expansion, no expiratory wheezing. ABDOMEN: Soft, well-functioning ileostomy in the right lower quadrant noted. Bowel sounds are present. EXTREMITIES: No edema. Available medication admission record has been reviewed. CLINICAL IMPRESSION: 1. Benign prostatic hypertrophy. 2. Psychotic disorder. 3. Status post ileostomy. 4. Status post complete antibiotic for Clostridium difficile colitis. 5. Hyponatremia, improved. 6. Degenerative joint disease. PLAN: In the view of his sodium is 137, cut down the sodium chloride to 1 gram twice a day instead of 3 times a day. Continue to prescribe probiotics along with Proscar and Flomax for BPH. Continue ileostomy care along with contact isolation. Psychotic evaluation and management deferred to psychiatrist. Care plan reviewed and discussed with staff. JOB# [id number]
[2018-07-20] MEDS: HALOPERIDOL PO SCH ×3 (08:56→20:30)
[2018-07-20] MEDS: Lactobacillus Rhamnosus GG 15 Billion CFU CAP.SPRINK PO SCH (08:56)
[2018-07-20] MEDS: Benztropine 1 MG TAB PO SCH ×2 (08:57→18:16)
[2018-07-20] MEDS: Multivitamin Tab PO SCH (08:57)
[2018-07-20] MEDS: Zinc Oxide Ointment 60 gm TP SCH (09:30)
--- NOTE | 2018-07-20 11:11 | Progress Notes ---
DATE: 07/20/2018 SUBJECTIVE: The patient in the hospital, remains gravely disabled, stating "I have no voices doctor." The patient remains impulsive, compulsive, still playing with colostomy area, requiring a higher level of supervision, making nonsensical statements, grave disability. Concerns for his ability to function at a lower level of care, pending placement to the conservator. PLAN: We will continue to monitor. We will continue to titrate and adjust medications. [facility]# [id number]
[2018-07-21] MEDS: Benztropine 1 MG TAB PO SCH ×2 (08:45→16:43)
[2018-07-21] MEDS: Lactobacillus Rhamnosus GG 15 Billion CFU CAP.SPRINK PO SCH (08:45)
[2018-07-21] MEDS: Zinc Oxide Ointment 60 gm TP SCH (08:46)
[2018-07-21] MEDS: Multivitamin Tab PO SCH (08:46)
[2018-07-21] MEDS: HALOPERIDOL PO SCH ×3 (08:46→21:48)
--- NOTE | 2018-07-21 12:43 | Progress Notes ---
DATE: IDENTIFICATION: A 63-year-old male. SUBJECTIVE: The patient seen and examined. The patient is lying in the bed. The patient is remaining hemodynamically stable, though the patient is hemodynamically stable, but still remaining very labile and unpredictable. PHYSICAL EXAMINATION: VITAL SIGNS: Temperature 97.9, pulse 73, respiratory rate is 18, blood pressure 117/78. HEENT: Poor dentition. NECK: Supple, no JVD. HEART: Regular. CHEST AND LUNGS: Equal in expansion, no expiratory wheezing. ABDOMEN: Soft, no guarding, no rigidity. Bowel sounds are present. No palpable mass. Well functioning ileostomy noted. EXTREMITIES: No edema. CLINICAL IMPRESSION: Medication admission record is reviewed. CLINICAL IMPRESSION: 1. Benign prostatic hypertrophy. 2. Status post ileostomy. 3. Psych disorder. 4. Degenerative joint disease. 5. Status post completed antibiotic for Clostridium difficile colitis. 6. Hyponatremia, resolved. PLAN: 1. Continue Proscar and Flomax. 2. Psychiatric evaluation deferred to psychiatrist. 3. Ileostomy care. 4. Watch for signs and symptoms of recurrence of Clostridium difficile colitis. 6. Recheck BMP. 7. General nursing care. 8. Nutritional support. 9. Care plan reviewed and discussed with staff. JOB# [id number]
--- NOTE | 2018-07-21 16:11 | Progress Notes ---
DATE: 07/21/2018 SUBJECTIVE: The patient is currently in the hospital, gravely disabled, still yelling at times "doctor, I have no voices, doctor, I have no voices," mostly impoverished. Still compulsive, impulsive, playing with colostomy area, for better ADLs, better eye contact. Sleeping fairly well with early childhood associate awakening. We are trying to work on placement through the conservator. Tolerant of treatment. Still demanding at times loud. ASSESSMENT: The patient with ongoing symptoms indicative of grave disability, preoccupied, conserved, unable to care for his basic needs. PLAN: We will continue to monitor, titrate, and adjust medications. Continue to work on a safe disposition plan. [facility]# [id number]
[2018-07-22 08:02] LABS: ANION GAP 9.6 (7.0-16.0); BUN - UREA NITROGEN 37 mg/dL (7-25); CALCIUM SERUM 9.1 mg/dL (8.6-10.3); CARBON DIOXIDE 25.7 mEq/L (21.0-31.0); CHLORIDE 107 mEq/L (98-107); CREATININE - SERUM 1.2 mg/dL (0.7-1.3); GFR AFRICAN-AMERICAN > 60.0 ml/min (>90); GFR NON AFRICAN-AMERICAN > 60.0 ml/min; GLUCOSE 90 mg/dL (70-105); POTASSIUM SERUM 4.3 mEq/L (3.5-5.1); SODIUM SERUM 138 mEq/L (136-145)
[2018-07-22] MEDS: Benztropine 1 MG TAB PO SCH ×2 (08:06→18:33)
[2018-07-22] MEDS: HALOPERIDOL PO SCH ×2 (08:07→13:55)
[2018-07-22] MEDS: Lactobacillus Rhamnosus GG 15 Billion CFU CAP.SPRINK PO SCH (08:07)
[2018-07-22] MEDS: Zinc Oxide Ointment 60 gm TP SCH (08:08)
--- NOTE | 2018-07-22 10:15 | Progress Notes ---
DATE: 07/22/2018 SUBJECTIVE: The patient was seen 07/22/2018, disoriented and disorganized, still telling me he is not hearing voices, still talking his colostomy bag, compulsive impulsive, unable to care for his basic needs requiring a higher level of supervision being having C. diff, confused, delusional, forgetful, gravely disabled. MEDICATIONS: Reviewed. ASSESSMENT: The patient remains impulsive, compulsive, unpredictable, unable to care for his basic needs, but calmer. PLAN: We will continue to monitor, titrate and adjust medications. We are trying to help him with the safe disposition plan. [facility]# [id number]
--- NOTE | 2018-07-22 12:02 | Progress Notes ---
DATE: 07/22/2018 SUBJECTIVE: The patient is seen and examined. PHYSICAL EXAMINATION: GENERAL: The patient is lying in the bed. No new event. VITAL SIGNS: Temperature 97.9, pulse 74, respiratory rate is 18, blood pressure 117/78. HEENT: No facial asymmetry. NECK: Supple, no JVD. HEART: Regular. CHEST: Lung equal in expansion, no expiratory wheezing. ABDOMEN: Soft. No guarding or rigidity. Bowel sounds are present. Well-functioning ileostomy noted. EXTREMITIES: No edema. AVAILABLE DIAGNOSTIC DATA: Sodium 138, potassium 4.3, chloride 107, CO2 25.7, BUN and creatinine is 37/1.2. MEDICATIONS: Medication administration record has been reviewed. CLINICAL IMPRESSION: 1. Hyponatremia, resolved. 2. Benign prostatic hypertrophy. 3. Degenerative joint disease. 4. Status post ileostomy. 5. Psychotic disorder. 6. History of smoking. 7. Fall risk. PLAN: 1. Continue current medication as prescribed, which include Flomax. 2. Continue her current medicine as prescribed for medical illness, which include Flomax, normal sodium chloride tablet, multivitamin, probiotics, Metamucil along with vitamin C and Proscar. Psychotic evaluation and management deferred to psychiatrist. JOB# [id number]
[2018-07-22] MEDS: Multivitamin Tab PO SCH (13:56)
[2018-07-23] MEDS: HALOPERIDOL PO SCH ×3 (09:05→20:45)
[2018-07-23] MEDS: Lactobacillus Rhamnosus GG 15 Billion CFU CAP.SPRINK PO SCH (09:05)
[2018-07-23] MEDS: Benztropine 1 MG TAB PO SCH ×2 (09:05→18:37)
[2018-07-23] MEDS: Multivitamin Tab PO SCH (09:06)
[2018-07-23] MEDS: Zinc Oxide Ointment 60 gm TP SCH (11:51)
--- NOTE | 2018-07-23 14:42 | Progress Notes ---
DATE: 07/23/2018 The patient remains disoriented, still stating "Doctor, I do not hear voices." Remains disorganized, confused, gravely disabled, ongoing safety concerns, concerns mostly about his ability to care for his basic needs. He remains compulsive, impulsive. Sleeping fairly well, eating well, ____ spending more time around others. ASSESSMENT: The patient impulsive, unpredictable, gravely disabled. PLAN: We will continue to monitor, titrate and adjust medications. We are trying to work on a safe disposition plan. [facility]# [id number]
[2018-07-24] MEDS: HALOPERIDOL PO SCH ×4 (08:57→21:14)
[2018-07-24] MEDS: Lactobacillus Rhamnosus GG 15 Billion CFU CAP.SPRINK PO SCH (08:57)
[2018-07-24] MEDS: Multivitamin Tab PO SCH (08:57)
[2018-07-24] MEDS: Benztropine 1 MG TAB PO SCH ×2 (08:59→17:33)
[2018-07-24] MEDS: Zinc Oxide Ointment 60 gm TP SCH (09:00)
--- NOTE | 2018-07-25 08:38 | Progress Notes ---
DATE: 07/24/2018 The patient was seen and evaluated. The patient's chart reviewed. Covering for Dr. Kumar. Today on [id number] evaluation, the patient immediately became ____, reporting "you are not my doctor, you are not my doctor" and then starts randomly screaming "I do not hear voices" and then put a sheet over his head. MENTAL STATUS EXAMINATION: Unpredictable, impulsive, agitated. ASSESSMENT AND PLAN: History of schizophrenia, disorganized and delusional who found himself unpredictable and easily agitated. Review of medication regimen which includes Cogentin 1 mg p.o. b.i.d., Depakote 750 p.o. b.i.d., Lexapro 20 mg, finasteride and currently also on Haldol 6 mg t.i.d. for a total of 18 mg and augmented with olanzapine at 20 mg p.o. b.i.d. No side effects were noted of the current medication regimen or expressed. We will continue monitoring and evaluating, continue with primary psychiatrist's treatment plan and goals. JOB# [id number]
[2018-07-25] MEDS: Benztropine 1 MG TAB PO SCH ×2 (09:16→16:54)
[2018-07-25] MEDS: Lactobacillus Rhamnosus GG 15 Billion CFU CAP.SPRINK PO SCH (09:17)
[2018-07-25] MEDS: Multivitamin Tab PO SCH (09:17)
--- NOTE | 2018-07-25 12:55 | Progress Notes ---
DATE: 07/25/[address] Kumar. Overnight nursing staff reported that the patient needed a lot of redirections, at times intermittently yelling. Today on [id number] evaluation, the patient immediately started screaming that he is not hearing voices anymore, becomes irritable, agitated upon approach; becomes irritable, agitated and impulsive. ASSESSMENT AND PLAN: The patient is a 63-year-old male with history of chronic schizophrenia. We will continue current medication regimen which included Depakote, escitalopram, Haldol and olanzapine to target the patient's ongoing psychotic behavior. JOB# [id number]
[2018-07-25] MEDS: Zinc Oxide Ointment 60 gm TP SCH (16:54)
--- NOTE | 2018-07-25 22:20 | Progress Notes ---
DATE: 07/25/2018 DATE OF EVALUATION: 07/25/2018 SUBJECTIVE: The patient seen and examined. The patient is sitting in the chair. No new event. PHYSICAL EXAMINATION: VITAL SIGNS: Temperature 98, pulse is 100, respiratory rate is 18, blood pressure 125/70. record has been reviewed. HEENT: No facial asymmetry. NECK: Supple, no JVD. HEART: Regular. LUNGS: Clear to auscultation. ABDOMEN: Soft, well-functioning ileostomy in the right lower quadrant noted. EXTREMITIES: No edema. CLINICAL IMPRESSION: 1. Benign prostatic hypertrophy. 2. Status post ileostomy. 3. Hyponatremia, improved. 4. Degenerative joint disease. 5. Smoking. 6. Psychotic disorder. PLAN: 1. Ileostomy care. 2. Continue sodium chloride tablet. 3. Watch for symptoms of bladder outlet obstruction due to benign prostatic hypertrophy. 4. Psychiatric medications and psychiatric followup. 5. General nursing care. 6. Care plan reviewed. JOB# [id number]
[2018-07-26] MEDS: HALOPERIDOL PO SCH ×3 (09:43→21:28)
[2018-07-26] MEDS: Multivitamin Tab PO SCH (09:44)
[2018-07-26] MEDS: Lactobacillus Rhamnosus GG 15 Billion CFU CAP.SPRINK PO SCH (09:45)
[2018-07-26] MEDS: Benztropine 1 MG TAB PO SCH ×2 (09:46→17:46)
[2018-07-26] MEDS: Zinc Oxide Ointment 60 gm TP SCH (09:47)
--- NOTE | 2018-07-26 19:26 | Progress Notes ---
DATE: 07/26/2018 SUBJECTIVE: The patient continues to need a Holli chair, intermittently yelling, impulsive, unpredictable, loud state "doctor I do not hear voices, noted to be irritable, more independent, less compulsive, less impulsive." Staff noting he is not as aggressive anymore. No longer hitting staff, remains gravely disabled. We are having a hard time with placement given how disorganized and impoverished this. PLAN: We will continue to monitor, titrate and adjust medications. Given his ongoing symptoms, he is not safe for discharge, unable to care for his basic needs. JOB# [id number]
[2018-07-27] MEDS: Lactobacillus Rhamnosus GG 15 Billion CFU CAP.SPRINK PO SCH (09:14)
[2018-07-27] MEDS: Benztropine 1 MG TAB PO SCH (09:14)
[2018-07-27] MEDS: HALOPERIDOL PO SCH (09:15)
[2018-07-27] MEDS: Multivitamin Tab PO SCH (09:16)
[2018-07-27] MEDS: Zinc Oxide Ointment 60 gm TP SCH (09:17)
--- NOTE | 2018-07-27 14:55 | Discharge Summary ---
DATE OF DISCHARGE: 07/27/2018 DATE OF DISCHARGE: 07/27/2018. JUSTIFICATION FOR HOSPITALIZATION: Agitated, aggressive behavior, smearing feces, hitting staff. HISTORY OF PRESENT ILLNESS: This 63-year-old male with long history of schizophrenia, conserved, punching staff in the abdomen at the longterm, smearing feces, psychotic, disorganized, aggressive, bizarre, taking out his colostomy bag, compulsive, impulsive, unruly. PAST PSYCHIATRIC HISTORY: Conserved. SOCIAL HISTORY: Noted. He had been residing at a [facility]. PAST MEDICAL HISTORY: Noted. MEDICATIONS: Noted. MENTAL STATUS EXAMINATION: Please see full psych eval for details. PROVISIONAL DIAGNOSIS: Schizophrenia, anxiety, unspecified; rule out obsessive compulsive disorder. MEDICAL: Please see full H and P. HOSPITAL COURSE: After initial assessment, medications were adjusted and titrated. Zyprexa dosing was increased. The patient also was placed on Haldol, Lexapro also for compulsivity, impulsivity over the course of the hospitalization. He slowly improved. It was found he had Clostridium difficile, so any discharge was held. He was placed on one-to-one. As the hospitalization course progressed, mood improved, affect improved, no longer as compulsive, no agitation, no smearing feces. It did take some time to confirm a safe discharge plan, but on 07/27/2018, discharge plan was confirmed. Conservator was okay with the discharge plan and he was stepped down to a lower level of care. CONDITION UPON DISCHARGE: Improved, better ADLs, allowing ADLs. Speech is loud. Mood "I'm fine, I'm not hearing voices doctor." Affect flat. Thought processes remained tangential. No SI, no HI, no overt psychotic symptoms, no hallucinations, no paranoia. His insight and judgment mildly diminished. Impulse control markedly better. PROVISIONAL DIAGNOSES: Schizophrenia, anxiety, unspecified; rule out obsessive compulsive disorder, mood, unspecified. PROGNOSIS: If the patient follows up with outpatient mental health services and remains compliant with treatment, prognosis will improve. Otherwise, guarded. JOB# [id number]
== END 2018-07-27 13:30 | DRG 885 ==
LOC: ER 18:52 → GERO 20:30 → GERO2 21:25 → GERO 06-11 18:08
PROVIDERS: ADMIT Psychiatry & Neurology Psychiatry; ATTEND Psychiatry & Neurology Psychiatry
DX: F20.9 Schizophrenia, unspecified (principal); N17.9 Acute kidney failure, unspecified; Z93.2 Ileostomy status; E87.1 Hypo-osmolality and hyponatremia; Z68.1 Body mass index [BMI] 19.9 or less, adult; A04.72 Enterocolitis due to Clostridium difficile, not specified as recurrent; E44.0 Moderate protein-calorie malnutrition; M19.90 Unspecified osteoarthritis, unspecified site; N40.0 Benign prostatic hyperplasia without lower urinary tract symptoms; F03.90 Unspecified dementia, unspecified severity, without behavioral disturbance, psychotic disturbance, mood disturbance, and anxiety; F32.9 Major depressive disorder, single episode, unspecified; D64.9 Anemia, unspecified; R19.7 Diarrhea, unspecified; F41.9 Anxiety disorder, unspecified; F17.210 Nicotine dependence, cigarettes, uncomplicated; I95.9 Hypotension, unspecified; E86.9 Volume depletion, unspecified; D63.8 Anemia in other chronic diseases classified elsewhere; J44.9 Chronic obstructive pulmonary disease, unspecified; F39 Unspecified mood [affective] disorder; F42.9 Obsessive-compulsive disorder, unspecified; Z86.718 Personal history of other venous thrombosis and embolism; Z93.3 Colostomy status; Z91.81 History of falling; Z88.8 Allergy status to other drugs, medicaments and biological substances
CPT/HCPCS: 36415-UA; 70450-TC; 80048-TC; 80053-TC; 80061-TC; 80164-TC; 82948-90; 83036-90; 83880-TC; 84443-TC; 85007-TC; 85025-TC; 86592-TC; 87230-TC; 90899; 93005; J1200; J1630; J2060; J3370; J7051; Z7610